=== PATIENT | female | born 1930 | race Caucasian/White ===

== ENCOUNTER → 2016-12-11 | Outpatient (CLI) | payer MEDICARE, MEDICAID ==
[~2016-12-11] MED LIST: AC325T PO; ACET325T38 PO; ACET500C4 PO; ALEN70TA2 PO; ALPR1T PO; ALPR1TAB2 PO; CALC-6 PO; CALC-732 PO; CARB15DR74 OU; CFTR250V IM; CPH500CIP PO; DESV100T PO; DESV25TA PO; DESV50TA PO; DOCU-143 PO; DONE10TA5 PO; DONE5TAB4 PO; ENAL10TA PO; ENAL5TAB PO; FESO4TAB PO; HYDR-3730 PO; HYDR-757 PO; IBAN150T5 PO; IPRA3AMP IH; K-ROCEP1PB IM; LACT1CAP62 PO; LORA-794 PO; LORA10TA2 PO; LORA2DIS4 IM; LRZ1T PO; MAGN400O7 PO; MEMA10TA PO; MEMA28CA PO; MRTZ15T PO; OMEP10CA4 PO; PEG250PW PO; PROP15DR OU; QTP100T PO; SENN1TAB76 PO; SERT50TA9 PO; THIA100T12 PO; THIA50TA2 PO; VITA-235 PO; VITA400T9 PO
[2016-12-11 14:42] LABS: BILIRUBIN,URINE NEGATIVE (NEGATIVE); KETONES,URINE NEGATIVE (NEGATIVE); LEUKOCYTE ESTERASE ,URINE NEGATIVE (NEGATIVE); NITRITE,URINE NEGATIVE (NEGATIVE); PH,URINE 6 (5-9); PROTEIN,URINE NEGATIVE (NEGATIVE); UROBILINOGEN,URINE NORMAL (NORMAL)
[2016-12-11 14:51] LABS: WBC,URINE RARE /HPF
--- OUTSIDE RECORDS SUMMARY | 2016-12-12 11:35 | XMS REPORT | Continuity of Care Document ---
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 Role Phone PHYLLIS SAEED DO PCP Insurance Providers Payer Name Policy Number Subscriber Name Relationship [employer] [id number] Tonia Sanchez 18 Self / Same As Patient [facility] [id number] Tonia Sanchez 18 Self / Same As Patient Advance Directives Directive Response Recorded Date/Time Advance Directives Yes 01/18/15 5:05pm Health Care Power of Nursing Officer [place] [phone] 01/18/15 5:05pm Organ Donor No 01/18/15 5:05pm Resuscitation Status Full Code 01/18/15 5:05pm Problems Medical Problems Problem Onset Date Status Sepsis Unknown Active Altered mental status Unknown Active Pneumonia Unknown Active Fall Unknown Active Sepsis Unknown Active Sinusitis Unknown Active Fall Unknown Active Contusion of right knee Unknown Active Sinusitis Unknown Active Medications Medication Dose Route Sig Days/Qty Instructions Order Date Discontinued Date Status Desvenlafaxine Succinate 100 Mg PO 10/18/12 08/07/14 Discontinued Enalapril Maleate 5 Mg PO 10/18/12 08/06/14 Discontinued Quetiapine Fumarate 1 Tab PO DAILY 10/18/12 08/07/14 Discontinued Ibandronate Sodium 150 Mg PO MONTHY ON ON EMPTY STOMACH 10/18/12 Active Calcium Carb/Vit D3/Minerals 1 Each PO 10/18/12 08/07/14 Discontinued Loratadine 10 Mg PO DAILY For RASH 10/18/12 Active Polyethylene Glycol 17 Gm PO DAILY PRN CONSTIPATION 10/18/12 Active Memantine 1 Each PO TWICE A DAY 10/18/12 08/07/14 Discontinued Omeprazole 10 Mg PO DAILY 10/18/12 Active Senna 1 Tab PO TWICE A DAY 10/18/12 Active Thiamine Hcl 50 Mg PO 10/18/12 08/07/14 Discontinued Vitamin E Mixed 400 Unit PO 10/18/12 08/07/14 Discontinued Hydrocodone Bit/Acetaminophen 1 Tab PO EVERY 6 HOURS PRN PAIN Active Lorazepam 1 Each PO TID PRN 10/18/12 08/07/14 Discontinued Alprazolam 1 Tab PO TWICE A DAY 10/18/12 Active Acetaminophen 650 Mg PO EVERY 4HRS PRN PAIN/ELEVATED TEMP 08/06/14 Active Donepezil Hcl 10 Mg PO BEDTIME 08/06/14 08/07/14 Discontinued Lorazepam 1 Mg IM EVERY 8HRS PRN ANXIETY OR AGGITATION 08/06/14 Discontinued Lactobacillus Acidophilus 500 Mu PO FOUR TIMES DAILY For MENTAL STATUS CHANGES 08/06/14 Active Mirtazapine 15 Mg PO BEDTIME 08/06/14 Active Ceftriaxone Sodium 1 Gm IM DAILY 08/06/14 08/07/14 Discontinued Propylene Glycol/Peg 400 1 Drop OU BEFORE MEALS AND AT BEDTIME Active Acetaminophen 500 Mg PO DAILY 08/06/14 08/07/14 Discontinued Desvenlafaxine Succinate 50 Mg PO DAILY 08/07/14 Active Calcium Carbonate/Vitamin D3 1 Tab PO TWICE A DAY 08/07/14 Active Memantine HCl 28 Mg PO DAILY 08/07/14 Active Thiamine Hcl 100 Mg PO TWICE A DAY 08/07/14 Active Vitamin E 400 Unit PO DAILY 08/07/14 08/16/14 Discontinued Lorazepam 1 Mg PO EVERY 8HRS PRN ANXIETY OR AGGITATION 08/07/14 Active Donepezil HCl 10 Mg PO BEDTIME 08/07/14 Active Acetaminophen 500 Mg PO DAILY 08/07/14 08/16/14 Discontinued Ceftriaxone Sodium 1 Gm IM DAILY For MENTAL STATUS CHANGES END 08-18-14/ START 08-05-14 08/07/14 08/16/14 Discontinued Sertraline Hcl 50 Mg PO BEDTIME 08/07/14 Active Cephalexin Monohydrate 500 Mg PO THREE TIMES A DAY 30 Qty 01/18/15 Active Social History Social History Problem Response Recorded Date/Time Alcohol Use Denies Use 01/18/2015 5:05pm Recreational Drug Use No 01/18/2015 5:05pm Recent Foreign Travel No 08/07/2014 3:09am Recent Infectious Disease Exposure No 08/07/2014 3:09am Hospitalization with Isolation Denies 01/18/2015 5:00pm Smoking Status Never a Smoker 01/18/2015 5:05pm Query Response Start Date Stop Date Smoking Status Never a Smoker Hospital Discharge Instructions No hospital discharge instructions. Plan of Care No plan of care. Functional Status No functional status results. Allergies, Adverse Reactions, Alerts Allergen Type Severity Reaction Status Last Updated diclofenac ([id number]) Allergy Unknown Active 08/07/14 Immunizations Name Given Type Date of Pneumonia Vaccine 09/23/10 Historical Date of Influenza Vaccine 09/23/13 Historical Vital Signs Acute Vital Signs Vital Response Date/Time Temperature (Fahrenheit) 98.4 degrees F (97.6 - 99.5) Temperature (Calculated Celsius) 36.69136 degrees C (36.4 - 37.5) Temperature Source Temporal Pulse Rate (adult) 73 bpm (60 - 90) Respiratory Rate 20 bpm (12 - 24) O2 Sat by Pulse Oximetry 99 % (88 - 100) Blood Pressure 150/71 mm Hg Pain Pain Intensity 1 Height (Feet) 5 feet Height (Inches) 6 inches Height (Calculated Centimeters) 167.556321 cm Weight (Pounds) 125 pounds Weight (Calculated Kilograms) 56.004181 kilograms Calculated BMI 20.17 Results No known relevant diagnostic tests, laboratory data and/or discharge summary. Procedures No known history of procedures. Encounters Encounter Location Date/Time Departed Emergency Room [facility] 01/18/15 4:39pm Recent Diagnosis
== END ==
PROVIDERS: ATTEND Family Medicine
DX: Z87.440 Personal history of urinary (tract) infections (principal); R82.99 Other abnormal findings in urine
CPT/HCPCS: 81000; 87088

== ENCOUNTER 2017-02-16 18:48 | Emergency (ER) | payer MEDICARE, MEDICAID ==
[~2017-02-16] VITALS: Ht 172.7 cm; Wt 63.8 kg
[~2017-02-16 18:48] MED LIST changes: -ALEN70TA2 PO; -ALPR1TAB2 PO; -CARB15DR74 OU; -DESV25TA PO; -DOCU-143 PO; -ENAL10TA PO; -FESO4TAB PO; -IPRA3AMP IH; -MAGN400O7 PO
[2017-02-16 19:27] LABS: BASOPHILS % (AUTO) 0 % (0-10); EOSINOPHILS % (AUTO) 0 % (0-10); LYMPHOCYTES # (AUTO) 1.6 X 10^3 (1.0-4.0); LYMPHOCYTES % (AUTO) 17 % (12-44); MEAN CORPUSCULAR HEMOGLOBIN 28 PG (25-34); MEAN CORPUSCULAR HGB CONC 33 G/DL (32-36); MEAN CORPUSCULAR VOLUME 85 FL (80-99); MONOCYTES # (AUTO) 0.8 X 10^3 (0.0-1.0); MONOCYTES % (AUTO) 8 % (0-12); NEUTROPHILS # (AUTO) 7.1 X 10^3 (1.8-7.8); NEUTROPHILS % (AUTO) 75 % (42-75); PLATELET COUNT 178 10^3/uL (130-400); RED BLOOD COUNT 4.97 10^6/uL (4.35-5.85); RED CELL DISTRIBUTION WIDTH 14.3 % (10.0-14.5); WHITE BLOOD COUNT 9.5 10^3/uL (4.3-11.0)
[2017-02-16 19:42] LABS: INR 1.1 (0.8-1.4); PROTHROMBIN TIME PATIENT 13.5 SEC (12.2-14.7)
[2017-02-16 19:53] LABS: ALANINE AMINOTRANSFERASE 18 U/L (0-55); ALBUMIN 3.9 G/DL (3.2-4.5); ANION GAP 10 MMOL/L (5-14); ASPARTATE AMINO TRANSFERASE 21 U/L (5-34); BILIRUBIN,TOTAL 0.5 MG/DL (0.1-1.0); BLOOD UREA NITROGEN 23 MG/DL (7-18); BUN/CREATININE RATIO 29; CALCIUM 10.1 MG/DL (8.5-10.1); CARBON DIOXIDE 24 MMOL/L (21-32); CHLORIDE 107 MMOL/L (98-107); CREATINE KINASE 177 U/L (29-168); GFR ESTIMATED > 60; GLUCOSE 104 MG/DL (70-105); POTASSIUM 3.9 MMOL/L (3.6-5.0); SODIUM 141 MMOL/L (135-145); TOTAL PROTEIN 7.3 G/DL (6.4-8.2)
--- NOTE | 2017-02-16 19:53 | Diagnostic Imaging Report ---
INDICATION: Pelvis pain after a fall. COMPARISON: 08/06/14. TECHNIQUE: Single AP view of the pelvis. FINDINGS: No acute fracture of the proximal femurs. Asymmetric degenerative changes in the left hip with subchondral sclerosis in the femoral head. Underlying avascular necrosis could be present. No discrete fracture within the sacrum. However, evaluation of the sacrum is limited due to overlying bowel gas. Obturator rings appear intact. Scattered pelvic phleboliths. Degenerative changes in the lower lumbar spine. IMPRESSION: 1. No acute fracture in the pelvis by radiography. Please note that the sacrum is obscured by overlying bowel gas. 2. Stable asymmetric degenerative changes in the left hip. Radiolucencies and densities in the left femoral head raise the possibility of osteonecrosis. This appearance is not significantly changed since 2013. Dictated by: Dictated on workstation # [id number]
--- NOTE | 2017-02-16 19:56 | Diagnostic Imaging Report ---
PROCEDURE: CT head without contrast. TECHNIQUE: Multiple contiguous axial images were obtained through the brain without the use of intravenous contrast. INDICATION: Fall. Head injury. COMPARISON: Comparison is made with the prior study from January 18, 2016. FINDINGS: There is advanced underlying global cerebral volume loss which has not significantly changed when compared to the previous study. There are diffuse regions of low density demonstrated throughout the deep white matter compatible with advanced chronic microvascular ischemic changes. There is no territorial loss of jefferson-white differentiation to suggest acute ischemia by CT. There is no evidence of acute intracranial hemorrhage. There is no evidence of an abnormal extra-axial fluid collection. There is no hydrocephalus. The ventricular enlargement is commensurate with the degree of volume loss present. The basilar cisterns appear patent. No calvarial fracture is evident. There is no abnormal opacification evident of the mastoids. IMPRESSION: 1. Advanced global volume loss with advanced background chronic microvascular changes within the white matter. There is stable ventriculomegaly which is proportional with the volume loss. There is no evidence of acute intracranial hemorrhage or findings to suggest territorial loss of jefferson-white differentiation. Dictated by: Dictated on workstation # [id number]
--- NOTE | 2017-02-16 19:57 | Diagnostic Imaging Report ---
Portable chest. Compared to prior study from June 05, 2016. INDICATION: Status post fall. FINDINGS: There is marked enlargement of the cardiac silhouette which is unchanged. Advanced mitral annulus calcifications are also noted. There are chronic interstitial changes present within the lungs. There is no evidence to suggest superimposed acute failure. There is no focal alveolar consolidation or evidence of an effusion or pneumothorax. There are degenerative features present within the spine. No acute fractures are demonstrated. There are degenerative features within the shoulders. Patient's prior left proximal humeral fracture is not included within the [id number]. IMPRESSION: 1. No radiographic evidence of an acute cardiopulmonary process. 2. Chronic interstitial changes within the lungs are again noted. There is also advanced cardiomegaly with advanced calcifications in the region of the mitral valve annulus. There is no evidence of acute failure. No focal alveolar infiltrates are demonstrated. Dictated by: Dictated on workstation # [id number]
[2017-02-16 20:13] LABS: BILIRUBIN,URINE NEGATIVE (NEGATIVE); KETONES,URINE NEGATIVE (NEGATIVE); LEUKOCYTE ESTERASE ,URINE 1+ (NEGATIVE); NITRITE,URINE NEGATIVE (NEGATIVE); PH,URINE 6 (5-9); PROTEIN,URINE 2+ (NEGATIVE); UROBILINOGEN,URINE NORMAL (NORMAL)
[2017-02-16 20:13] LABS: TROPONIN I < 0.30 NG/ML (<0.30)
[2017-02-16 20:17] LABS: SQUAMOUS EPITHELIAL CELL,UR 0-2 /HPF; WBC,URINE 0-2 /HPF
--- NOTE | 2017-02-16 20:30 | ED General ---
General Chief Complaint: General Problems/Pain Stated Complaint: FALL Nursing Triage Note: PT TO ED 8 PER EMS, NO REPORT FROM [facility], PER EMS, REPORTS WAS TOLD BY [facility], PT FELL, GOT UP ET GOT BACK INTO BED HOWEVER FALL ETC WERE NOT WITNESSED. PT DOES HAVE HX OF DEMENTIA Nursing Sepsis Screen: No Definite Risk Source of Information: EMS, [facility] Records, Old Records Exam Limitations: Other (PT IS NOT ANSWERING QUESTIONS OR FOLLOWING COMMANDS-- PT WITH DEMENTIA. ) History of Present Illness Time Seen by Provider: 18:48 Initial Comments PT ARRIVES VIA EMS FROM [facility]FF DID NOT CALL ER PRIOR TO ARRIVAL PT WITH REPORTED "ALTERED MENTAL STATUS" --PT WITH DEMENTIA, BUT IS UNKNOWN WHAT HER BASELINE IS OR HOW HER MENTAL STATUS HAS CHANGED [facility]FF REPORTED TO EMS THAT THEY FOUND PT IN BED WITH "ALTERED MENTAL STATUS", AND THEY THOUGHT THAT PT POSSIBLY FELL AND THEN GOT HERSELF BACK IN TO BED BEFORE THE STAFF FOUND HER. NO FALL WAS WITNESSED OR VERBALIZED BY ANYONE, AND PT IS UNABLE TO PROVIDE ANY INFORMATION AT ALL, ALL SHE SAYS IS "HELP ME" AND "I'M COLD" CONTINUOUSLY NO OTHER INFORMATION IS OBTAINABLE PCP: DR. SAEED Allergies and Home Medications Allergies Coded Allergies: diclofenac (Verified Allergy, Unknown, 08/07/14) Home Medications Acetaminophen 325 Mg Tablet, 650 MG PO Q4H PRN for PAIN/ELEVATED TEMP, (Reported ) TAKE 2 (325MG) TABLET Alprazolam 1 Mg Tablet, 1 TAB PO BID, (Reported) Calcium Carbonate/Vitamin D3 1 Each Tablet, 1 TAB PO BID, (Reported) Cephalexin Monohydrate 500 Mg Cap, 500 MG PO TID, #30 Ref 0 Prescribed by: KIET SAMSON on 01/18/15 1845 Desvenlafaxine Succinate 50 Mg Tab.sr.24h, 50 MG PO DAILY, (Reported) Donepezil HCl 10 Mg Tablet, 10 MG PO HS, (Reported) Hydrocodone Bit/Acetaminophen 1 Each Tablet, 1 TAB PO Q6H PRN for PAIN, ( Reported) Hydrocodone/Acetaminophen 1 Each Tablet, 1 EACH PO Q6H PRN for arm pain, #30 Ref 0 Prescribed by: DARRELL STAPLES on 06/05/16 0243 Ibandronate Sodium 150 Mg Tablet, 150 MG PO MONTHY ON , (Reported) ON EMPTY STOMACH Lactobacillus Acidophilus 1 Each Capsule, 500 MU PO QID, (Reported) Loratadine 10 Mg Tablet, 10 MG PO DAILY, (Reported) Lorazepam 1 Mg Tab, 1 MG PO Q8H PRN for ANXIETY OR AGGITATION, (Reported) Memantine HCl 28 Mg Cap.spr.24, 28 MG PO DAILY, (Reported) Mirtazapine 15 Mg Tab, 15 MG PO HS, (Reported) Omeprazole 10 Mg Capsule.dr, 10 MG PO DAILY, (Reported) Polyethylene Glycol 1 Ea Pack, 17 GM PO DAILY PRN for CONSTIPATION, (Reported) Propylene Glycol/Peg 400 5 Ml Drops, 1 DROP OU ACHS, (Reported) Senna 1 Tab Tablet, 1 TAB PO BID, (Reported) Sertraline Hcl 50 Mg Tablet, 50 MG PO HS, (Reported) Thiamine Hcl 100 Mg Tablet, 100 MG PO BID, (Reported) Constitutional: other (UNABLE TO OBTAIN FROM PT) Past [id number] Hx Patient Social History Smoking Status: Unknown if Ever Smoked Recent Foreign Travel: No Contact w/Someone Who Travel: No Recent Infectious Disease Expo: No Recent Hopitalizations: No Immunizations Up To Date Date of Pneumonia Vaccine: Sep 23, 2010 Date of Influenza Vaccine: Sep 23, 2013 Surgeries HX Surgeries: No (UNKNOWN) Respiratory Hx Respiratory Disorders: No Cardiovascular Hx Cardiac Disorders: Yes Cardiac Disorders: Hypertension Neurological Hx Neurological Disorders: Yes Neurological Disorders: Dementia Reproductive System [employer] History: Menopausal Genitourinary Hx Genitourinary Disorders: Yes Genitourinary Disorders: UTI-Chronic Gastrointestinal Hx Gastrointestinal Disorders: Yes Gastrointestinal Disorders: Gastroesophageal Reflux Musculoskeletal Hx Musculoskeletal Disorders: Yes Musculoskeletal Disorders: Osteoporosis, Arthritis Endocrine Hx Endocrine Disorders: No HEENT HX ENT Disorders: No Cancer Hx Cancer: No Psychosocial Hx Psychiatric Problems: Yes Behavioral Health Disorders: Anxiety, Depression Integumentary HX Skin/Integumentary Disorder: No Blood Transfusions Hx Blood Disorders: No Physical Exam Vital Signs Vital Sign - Last 12Hours 02/16/17 18:51 Temp 96.3 Pulse 82 Resp 16 B/P (MAP) 200/102 Pulse Ox 95 O2 Delivery Room Air Capillary Refill : Less Than 3 Seconds General Appearance: No Apparent Distress, WD/WN, Other (MILDLY LETHARGIC, AWAKE. REPEATS "HELP ME" AND "I'M COLD" CONTINUOUSLY) HEENT: PERRL/EOMI (PUPILS PINPOINT / EQUAL), Other (POOR DENTITION) Neck: Full Range of Motion, Normal Inspection, Non Tender, Supple Respiratory: Normal Breath Sounds, No Accessory Muscle Use, No Respiratory Distress Cardiovascular: Regular Rate, Rhythm, No Edema, No JVD, Normal Peripheral Pulses, Systolic Murmur (1-2/6 MURMUR) Gastrointestinal: Normal Bowel Sounds, No Organomegaly, No Pulsatile Mass, Non Tender, Soft Back: No CVA Tenderness Extremity: Normal Range of Motion, Non Tender, No Calf Tenderness, No Pedal Edema Neurologic/Psychiatric: Other (AWAKE BUT LETHARGIC. DOES NOT ANSWER ANY QUESTIONS OR FOLLOW ANY COMMANDS, BUT MOVES ALL EXTREMITIES EQUALLY. ) Skin: Normal Color, Warm/Dry, Other (NO EXTERNAL EVIDENCE OF TRAUMA NOTED ANYWHERE ON BODY. ) Progress/Results/Core Measures Results/Orders Lab Results Laboratory Tests Test 02/16/17 18:54 02/16/17 19:22 02/16/17 19:58 Range/Units Glucometer 91 70-110 MG/DL White Blood Count 9.5 4.3-11.0 10^3/uL Red Blood Count 4.97 4.35-5.85 10^6/uL Hemoglobin 13.9 11.5-16.0 G/DL Hematocrit 42 35-52 % Mean Corpuscular Volume 85 80-99 FL Mean Corpuscular Hemoglobin 28 25-34 PG Mean Corpuscular Hemoglobin Concent 33 32-36 G/DL Red Cell Distribution Width 14.3 10.0-14.5 % Platelet Count 178 130-400 10^3/uL Mean Platelet Volume 10.0 7.4-10.4 FL Neutrophils (%) (Auto) 75 42-75 % Lymphocytes (%) (Auto) 17 12-44 % Monocytes (%) (Auto) 8 0-12 % Eosinophils (%) (Auto) 0 0-10 % Basophils (%) (Auto) 0 0-10 % Neutrophils # (Auto) 7.1 1.8-7.8 X 10^3 Lymphocytes # (Auto) 1.6 1.0-4.0 X 10^3 Monocytes # (Auto) 0.8 0.0-1.0 X 10^3 Eosinophils # (Auto) 0.0 0.0-0.3 10^3/uL Basophils # (Auto) 0.0 0.0-0.1 10^3/uL Prothrombin Time 13.5 12.2-14.7 SEC INR Comment 1.1 0.8-1.4 Activated Partial Thromboplast Time 36 H 24-35 SEC Sodium Level 141 135-145 MMOL/L Potassium Level 3.9 3.6-5.0 MMOL/L Chloride Level 107 98-107 MMOL/L Carbon Dioxide Level 24 21-32 MMOL/L Anion Gap 10 5-14 MMOL/L Blood Urea Nitrogen 23 H 7-18 MG/DL Creatinine 0.80 0.60-1.30 MG/DL Estimat Glomerular Filtration Rate > 60 BUN/Creatinine Ratio 29 Glucose Level 104 70-105 MG/DL Calcium Level 10.1 8.5-10.1 MG/DL Magnesium Level 2.0 1.8-2.4 MG/DL Total Bilirubin 0.5 0.1-1.0 MG/DL Aspartate Amino Transf (AST/SGOT) 21 5-34 U/L Alanine Aminotransferase (ALT/SGPT) 18 0-55 U/L Alkaline Phosphatase 88 40-136 U/L Total Creatine Kinase 177 H 29-168 U/L Creatine Kinase MB 7.1 *H <6.6 NG/ML Troponin I < 0.30 <0.30 NG/ML Total Protein 7.3 6.4-8.2 G/DL Albumin 3.9 3.2-4.5 G/DL TSH Levy Testing 2.35 0.35-4.94 UIU/ML Urine Color YELLOW Urine Clarity CLEAR Urine pH 6 5-9 Urine Specific [place] 1.020 1.016-1.022 Urine Protein 2+ H NEGATIVE Urine Glucose (UA) NEGATIVE NEGATIVE Urine Ketones NEGATIVE NEGATIVE Urine Nitrite NEGATIVE NEGATIVE Urine Bilirubin NEGATIVE NEGATIVE Urine Urobilinogen NORMAL NORMAL MG/DL Urine Leukocyte Esterase 1+ H NEGATIVE Urine RBC (Auto) 1+ H NEGATIVE Urine RBC 0-2 /HPF Urine WBC 0-2 /HPF Urine Squamous Epithelial Cells 0-2 /HPF Urine Crystals NONE /LPF Urine Bacteria NONE /HPF Urine Casts NONE /LPF Urine Mucus NEGATIVE /LPF Urine Culture Indicated NO Urine Opiates Screen POSITIVE H NEGATIVE Urine Oxycodone Screen NEGATIVE NEGATIVE Urine Methadone Screen NEGATIVE NEGATIVE Urine Propoxyphene Screen NEGATIVE NEGATIVE Urine Barbiturates Screen NEGATIVE NEGATIVE Ur Tricyclic Antidepressants Screen NEGATIVE NEGATIVE Urine Phencyclidine Screen NEGATIVE NEGATIVE Urine Amphetamines Screen NEGATIVE NEGATIVE Urine Methamphetamines Screen NEGATIVE NEGATIVE Urine Benzodiazepines Screen POSITIVE H NEGATIVE Urine Cocaine Screen NEGATIVE NEGATIVE Urine Cannabinoids Screen NEGATIVE NEGATIVE My Orders Orders - PRASHANT JJ DO Accucheck Stat ONCE (02/16/17 18:53) Saline Lock/Iv-Start (02/16/17 18:53) Ekg Tracing (02/16/17 18:53) Monitor-Rhythm Ecg Trace Only (02/16/17 18:53) Ct Head Wo (02/16/17 18:53) Cbc With Automated Diff (02/16/17 18:53) Comprehensive Metabolic Panel (02/16/17 18:53) Creatine Kinase (02/16/17 18:53) Creatine Kinase Mb (02/16/17 18:53) Drug Screen Stat (Urine) (02/16/17 18:53) Magnesium (02/16/17 18:53) Protime With Inr (02/16/17 18:53) Partial Thromboplastin Time (02/16/17 18:53) Thyroid Analyzer (02/16/17 18:53) Troponin I (02/16/17 18:53) Ua Culture If Indicated (02/16/17 18:53) Chest 1 View, Ap/Pa Only (02/16/17 18:53) Pelvis (02/16/17 18:53) Vital Signs/I&O Vital Sign - Last 12Hours 02/16/17 02/16/17 18:51 20:56 Temp 96.3 Pulse 82 79 Resp 16 16 B/P (MAP) 200/102 Pulse Ox 95 96 O2 Delivery Room Air Blood Pressure Mean: 134 Progress Note : Progress Note DIFFICULT TO OBTAIN BP READINGS, PT WITH CONSTANT MOVEMENT OF ARM AND FIGHTING AND C/O BP CUFF HURTING BP DOWN TO 140'S / 90'S WITHOUT TREATMENT UNEVENTFUL ER STAY ECG Initial ECG Impression Time: 19:16 Initial ECG Rate: 83 Initial ECG Rhythm: Normal Sinus (INCOMPLETE RBBB) Initial ECG Comparisson: No Previous ECG Available Diagnostic Imaging Comments CT HEAD--NO ACUTE PROCESS, ATROPHY, CHRONIC SMALL VESSEL ISCHEMIC CHANGES CXR--NO ACUTE PROCESS, CHRONIC CHANGES-CALCIFICATIONS AROUND MITRAL VALVE PELVIS XRAYS--NO ACUTE PROCESS, CHRONIC CHANGES TO LEFT HIP ALL PER RADIOLOGIST REPORTS @ 2001 Reviewed: Reviewed by Me Departure Communication Progress Notes 2024--SPOKE WITH DR. SAEED. ADVISES TO SEND PT BACK TO [facility], THEY ARE TO DO NEUROCHECKS EVERY 2 HOURS, AND HE WILL SEE PT IN OFFICE TOMORROW MORNING AT 11:30 Impression Impression: Primary Impression: Altered mental status Additional Impressions: Labile hypertension Dementia Disposition: 03 XF SNF Condition: Stable Departure-Patient Inst. Referrals: PHYLLIS SAEED DO (PCP/Family) Primary Care Physician Patient Instructions: Altered Mental Status (DC) Add. Discharge Instructions: NEUROCHECKS EVERY 2 HOURS CONTINUE CURRENT MEDICATIONS FOLLOW UP WITH DR. SAEED IN THE OFFICE TOMORROW AT 11:30 AM All discharge instructions reviewed with patient and/or family. Voiced understanding. PRASHANT JJ DO Feb 16, 2017 20:30
[2017-02-16 20:56] VITALS: BP 173/98
[2017-02-17] MEDS ORDERED: FESO4TAB PO (09:01)
[2017-02-17] MEDS ORDERED: MAGN400O7 PO (09:01)
[2017-02-17] MEDS ORDERED: DOCU-143 PO (09:01)
[2017-02-17] MEDS ORDERED: THIA50TA2 PO (09:01)
[2017-02-17] MEDS ORDERED: ALPR1TAB2 PO (09:01)
[2017-02-17] MEDS ORDERED: CARB15DR74 OU (09:01)
[2017-02-17] MEDS ORDERED: ALEN70TA2 PO (09:01)
[2017-02-17] MEDS ORDERED: DESV25TA PO (09:01)
[2017-02-17] MEDS ORDERED: IPRA3AMP IH (09:01)
--- OUTSIDE RECORDS SUMMARY | 2017-03-03 19:12 | XMS REPORT | Continuity of Care Document ---
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 03/22/2012 Ot 719.45 JOINT PAIN-PELVIS 03/22/2012 Ot 722.4 CERVICAL DISC DEGEN 03/22/2012 Ot 813.42 FX DISTAL RADIUS NEC-CL 03/22/2012 Ot 959.01 HEAD INJURY, NOS 03/22/2012 Ot E000.8 OTHER EXTERNAL CAUSE STATUS 03/22/2012 Ot E849.7 ACCID IN RESIDENT INSTIT 03/22/2012 Ot E888.9 FALL NOS 10/18/2012 Ot 722.4 CERVICAL DISC DEGEN 10/18/2012 Ot 847.0 SPRAIN OF NECK 10/18/2012 Ot 850.9 CONCUSSION NOS 10/18/2012 Ot 873.0 OPEN WOUND OF SCALP 10/18/2012 Ot E000.8 OTHER EXTERNAL CAUSE STATUS 10/18/2012 Ot E849.7 ACCID IN RESIDENT INSTIT 10/18/2012 Ot E888.9 FALL NOS 10/18/2012 Ot V03.7 TETANUS TOXOID INOCULAT 08/16/2014 PHYLLIS SAEED DO Ot 038.9 SEPTICEMIA NOS 08/16/2014 PHYLLIS SAEED DO Ot 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 08/16/2014 PHYLLIS SAEED DO Ot 276.1 HYPOSMOLALITY 08/16/2014 PHYLLIS SAEED DO Ot 276.8 HYPOPOTASSEMIA 08/16/2014 PHYLLIS SAEED DO Ot 285.9 ANEMIA NOS 08/16/2014 PHYLLIS SAEED DO Ot 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 08/16/2014 DARLIN NGPHYLLIS Ot 300.00 ANXIETY STATE NOS 08/16/2014 DARLIN NGPHYLLIS Ot 311 DEPRESSIVE DISORDER NEC 08/16/2014 DARLIN NGPHYLLIS Ot 331.0 ALZHEIMER'S DISEASE 08/16/2014 DARLIN NGPHYLLIS Ot 401.9 HYPERTENSION NOS 08/16/2014 DARLIN NGPHYLLIS Ot 482.41 METHICILLIN SUSCEPTIBLE PNEUMONIA D/ T ST 08/16/2014 DARLIN NGPHYLLIS Ot 510.9 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 FISTULA 08/16/2014 DARLIN NGPHYLLIS Ot 511.9 PLEURAL EFFUSION NOS 08/16/2014 DARLIN NGPHYLLIS Ot 530.81 ESOPHAGEAL REFLUX 08/16/2014 DARLIN NGPHYLLIS Ot 716.90 ARTHROPATHY NOS-UNSPEC 08/16/2014 DARLIN NGPHYLLIS Ot 719.45 JOINT PAIN-PELVIS 08/16/2014 DARLIN NGPHYLLIS Ot 733.00 OSTEOPOROSIS NOS 08/16/2014 DARLIN NGPHYLLIS Ot 959.09 INJURY OF FACE AND NECK 08/16/2014 DARLIN NGPHYLLIS Ot 995.91 SEPSIS 08/16/2014 DARLIN NGPHYLLIS Ot E849.7 ACCID IN RESIDENT INSTIT 08/16/2014 DARLIN NGPHYLLIS Ot E888.9 FALL NOS 08/16/2014 DARLIN NGPHYLLIS Ot V13.02 PERSONAL HISTORY, URINARY (TRACT) INFECT 10/17/2014 DARLIN NGPHYLLIS Ot 511.9 10/17/2014 DARLIN NGPHYLLIS Ot 518.0 10/17/2014 DARLIN NGPHYLLIS Ot V67.09 10/17/2014 DARLIN NGPHYLLIS Ot 486 10/17/2014 DARLIN NGPHYLLIS Ot 780.79 01/18/2015 Ot 473.9 CHRONIC SINUSITIS NOS 01/18/2015 Ot 924.11 CONTUSION OF KNEE 01/18/2015 Ot 959.7 LOWER LEG INJURY NOS 01/18/2015 Ot E000.8 OTHER EXTERNAL CAUSE STATUS 01/18/2015 Ot E849.7 ACCID IN RESIDENT INSTIT 01/18/2015 Ot E888.9 FALL NOS 02/23/2015 Ot 729.81 03/19/2015 Ot 729.81 12/14/2015 GELLENDER DO, PHYLLIS A Ot R05 12/27/2015 GELVENKATDER DO, PHYLLIS A Ot R05 06/05/2016 JHOAN DODARRELL Ot F03.90 UNSPECIFIED DEMENTIA WITHOUT BEHAVIORAL 06/05/2016 JHOAN DO, DARRELL Raygoza Ot S42.292A OTH DISP FX OF UPPER END OF LEFT HUMERUS 06/05/2016 JHOAN DODARRELL Ot S59.912A UNSPECIFIED INJURY OF LEFT FOREARM, INIT 06/05/2016 JHOAN DODARRELL Ot W01.0XXA FALL SAME LEV FROM SLIP/TRIP W/O STRIKE 06/05/2016 JHOAN DODARRELL Ot Y92.[address] IN CORRECTION PLACE 06/05/2016 JHOAN DODARRELL Ot Y99.8 OTHER EXTERNAL CAUSE STATUS 06/06/2016 JHOAN DO, DARRELL Raygoza Ot F03.90 UNSPECIFIED DEMENTIA WITHOUT BEHAVIORAL 06/06/2016 JHOAN DO, DARRELL Raygoza Ot S42.292A OTH DISP FX OF UPPER END OF LEFT HUMERUS 06/06/2016 JHOAN DO, DARRELL Raygoza Ot S59.912A UNSPECIFIED INJURY OF LEFT FOREARM, INIT 06/06/2016 JHOAN DO, DARRELL Raygoza Ot W01.0XXA FALL SAME LEV FROM SLIP/TRIP W/O STRIKE 06/06/2016 JHOAN DODARRELL Ot Y92.[address] CORRECTION PLACE 06/06/2016 JHOAN DODARRELL Ot Y99.8 OTHER EXTERNAL CAUSE STATUS 06/11/2016 JHOAN DODARRELL Ot F03.90 UNSPECIFIED DEMENTIA WITHOUT BEHAVIORAL 06/11/2016 JHOAN DODARRELL Ot S42.292A OTH DISP FX OF UPPER END OF LEFT HUMERUS 06/11/2016 JHOAN DO, DARRELL Raygoza Ot S59.912A UNSPECIFIED INJURY OF LEFT FOREARM, INIT 06/11/2016 JHOAN DO, DARRELL Raygoza Ot W01.0XXA FALL SAME LEV FROM SLIP/TRIP W/O STRIKE 06/11/2016 JHOAN DODARRELL Ot Y92.[address] IN CORRECTION PLACE 06/11/2016 JHOAN DODARRELL Ot Y99.8 OTHER EXTERNAL CAUSE STATUS 12/16/2016 DARLIN DO, PHYLLIS Carranza Ot R82.99 OTHER ABNORMAL FINDINGS IN URINE 12/16/2016 DARLIN NG, PHYLLIS Carranza Ot Z87.440 PERSONAL HISTORY OF URINARY (TRACT) INFE 12/18/2016 MCKAYLALENNEHEMIAH DO, PHYLLIS Carranza Ot R82.99 OTHER ABNORMAL FINDINGS IN URINE 12/18/2016 DARLIN DO, PHYLLIS Carranza Ot Z87.440 PERSONAL HISTORY OF URINARY (TRACT) INFE 02/03/2017 MCKAYLALENNEHEMIAH DO, PHYLLIS Carranza Ot R82.99 OTHER ABNORMAL FINDINGS IN URINE 02/03/2017 DARLIN DO, PHYLLIS Carranza Ot Z87.440 PERSONAL HISTORY OF URINARY (TRACT) INFE 02/12/2017 MCKAYLALENDER DO, PHYLLIS Carranza Ot R82.99 OTHER ABNORMAL FINDINGS IN URINE 02/12/2017 DARLIN DO, PHYLLIS Carranza Ot Z87.440 PERSONAL HISTORY OF URINARY (TRACT) INFE 02/17/2017 BRADY GUZMAN, VERONICA Carranza Ot 780.97 ALTERED MENTAL STATUS 02/17/2017 VERONICA ABREU MD Ot 791.9 ABN URINE FINDINGS NEC 02/17/2017 DARLIN NGPHYLLIS Ot 511.9 PLEURAL EFFUSION NOS 02/17/2017 DARLIN NG, PHYLLIS Carranza Ot 518.0 PULMONARY COLLAPSE 02/17/2017 DARLIN NGPHYLLIS Ot V67.09 SURGERY FOLLOW-UP, OTHER SURGERY 02/17/2017 DARLIN NG, PHYLLIS Carranza Ot 486 PNEUMONIA, ORGANISM NOS 02/17/2017 DARLIN NG, PHYLLIS Carranza Ot 780.79 OTH MALAISE FATIGUE 02/17/2017 Ot 729.81 SWELLING OF LIMB 02/17/2017 DARLIN NGPHYLLIS Ot R05 COUGH 02/17/2017 DARLIN NG, PHYLLIS Carranza Ot R82.99 OTHER ABNORMAL FINDINGS IN URINE 02/17/2017 DARLIN NG, HPYLLIS Carranza Ot Z87.440 PERSONAL HISTORY OF URINARY (TRACT) INFE 02/17/2017 PRASHANT JJ DO Ot F03.90 UNSPECIFIED DEMENTIA WITHOUT BEHAVIORAL 02/17/2017 PRASHANT JJ DO Ot I10 ESSENTIAL (PRIMARY) HYPERTENSION 02/17/2017 PRASHANT JJ DO Ot R41.82 ALTERED MENTAL STATUS, UNSPECIFIED 02/17/2017 PRASHANT JJ DO Ot Z79.899 OTHER NURSING HOME (CURRENT) DRUG THERAPY 02/18/2017 DARLIN NGPHYLLIS Ot F03.90 UNSPECIFIED DEMENTIA WITHOUT BEHAVIORAL 02/18/2017 GELLENDER DO, PHYLLIS Carranza Ot F32.9 MAJOR DEPRESSIVE DISORDER, SINGLE EPISOD 02/18/2017 GELLENDER DO, PHYLLIS Carranza Ot F41.9 ANXIETY DISORDER, UNSPECIFIED 02/18/2017 GELLENDER DO, PHYLLIS Carranza Ot I10 ESSENTIAL (PRIMARY) HYPERTENSION 02/18/2017 GELLENDER DO, PHYLLIS Carranza Ot K21.9 GASTRO-ESOPHAGEAL REFLUX DISEASE WITHOUT 02/18/2017 GELLENDER DO, PHYLLIS Carranza Ot M19.91 PRIMARY OSTEOARTHRITIS, UNSPECIFIED SITE 02/18/2017 GELLENDER DO, PHYLLIS Carranza Ot M81.0 AGE-RELATED OSTEOPOROSIS W/O CURRENT PAT 02/18/2017 GELLENDER DO, PHYLLIS Carranza Ot R11.2 NAUSEA WITH VOMITING, UNSPECIFIED 02/18/2017 GELLENDER DO, PHYLLIS Carranza Ot R41.82 ALTERED MENTAL STATUS, UNSPECIFIED 02/18/2017 GELLENDER DO, PHYLLIS Carranza Ot R47.81 SLURRED SPEECH 02/18/2017 GELLENDER DO, PHYLLIS Carranza Ot R53.83 OTHER FATIGUE 02/19/2017 GELLENDER DO, PHYLLIS Carranza Ot F03.90 UNSPECIFIED DEMENTIA WITHOUT BEHAVIORAL 02/19/2017 GELLENDER DO, PHYLLIS Carranza Ot F32.9 MAJOR DEPRESSIVE DISORDER, SINGLE EPISOD 02/19/2017 GELLENDER DO, PHYLLIS Carranza Ot F41.9 ANXIETY DISORDER, UNSPECIFIED 02/19/2017 GELLENDER DO, PHYLLIS Carranza Ot I10 ESSENTIAL (PRIMARY) HYPERTENSION 02/19/2017 GELLENDER DO, PHYLLIS Carranza Ot K21.9 GASTRO-ESOPHAGEAL REFLUX DISEASE WITHOUT 02/19/2017 GELLENDER DO, PHYLLIS Carranza Ot M19.91 PRIMARY OSTEOARTHRITIS, UNSPECIFIED SITE 02/19/2017 GELLENDER DO, PHYLLIS Carranza Ot M81.0 AGE-RELATED OSTEOPOROSIS W/O CURRENT PAT 02/19/2017 GELLENDER DO, PHYLLIS Carranza Ot R11.2 NAUSEA WITH VOMITING, UNSPECIFIED 02/19/2017 GELLENDER DO, PHYLLIS Carranza Ot R41.82 ALTERED MENTAL STATUS, UNSPECIFIED 02/19/2017 GELLENDER DO, PHYLLIS Carranza Ot R47.81 SLURRED SPEECH 02/19/2017 GELLENDER DO, PHYLLIS Carranza Ot R53.83 OTHER FATIGUE 02/19/2017 GELLENDER DO, PHYLLIS Carranza Ot F02.80 DEMENTIA IN OTH DISEASES CLASSD ELSWHR W 02/19/2017 GELLENDER DO, PHYLLIS Carranza Ot F03.90 UNSPECIFIED DEMENTIA WITHOUT BEHAVIORAL 02/19/2017 GELLENDER DO, PHYLLIS Carranza Ot F32.9 MAJOR DEPRESSIVE DISORDER, SINGLE EPISOD 02/19/2017 GELLENDER DO, PHYLLIS Carranza Ot F41.9 ANXIETY DISORDER, UNSPECIFIED 02/19/2017 GELLENDER DO, PHYLLIS Carranza Ot G30.9 ALZHEIMER'S DISEASE, UNSPECIFIED 02/19/2017 GELLENDER DO, PHYLLIS Carranza Ot I10 ESSENTIAL (PRIMARY) HYPERTENSION 02/19/2017 GELLENDER DO, PHYLLIS Carranza Ot K21.9 GASTRO-ESOPHAGEAL REFLUX DISEASE WITHOUT 02/19/2017 GELLENDER DO, PHYLLIS Carranza Ot M19.91 PRIMARY OSTEOARTHRITIS, UNSPECIFIED SITE 02/19/2017 GELLENDER DO, PHYLLIS Dillon Ot M81.0 AGE-RELATED OSTEOPOROSIS W/O CURRENT PAT 02/19/2017 GELLENDER DO, PHYLLIS Carranza Ot R11.2 NAUSEA WITH VOMITING, UNSPECIFIED 02/19/2017 GELLENDER DO, PHYLLIS Carranza Ot R41.82 ALTERED MENTAL STATUS, UNSPECIFIED 02/19/2017 GELLENDER DO, PHYLLIS Dillon Ot R47.81 SLURRED SPEECH 02/19/2017 GELLENDER DO, PHYLLIS Dillon Ot R53.83 OTHER FATIGUE 02/21/2017 АННА PRASHANT NG Ot F03.90 UNSPECIFIED DEMENTIA WITHOUT BEHAVIORAL 02/21/2017 PRASHANT JJ DO Ot I10 ESSENTIAL (PRIMARY) HYPERTENSION 02/21/2017 АННА PRASHANT NG Ot R41.82 ALTERED MENTAL STATUS, UNSPECIFIED 02/21/2017 PRASHANT JJ DO Ot Z79.899 OTHER NURSING HOME (CURRENT) DRUG THERAPY Procedures Code Description Performed By Performed On 34.91 THORACENTESIS 34.52 THORACOSCOPIC DECORTICATION OF LUNG 08/10/2014 Results Test Result Range Complete urinalysis with reflex to culture - 12/11/16 14:10 Urine color determination YELLOW NRG Urine clarity determination CLEAR NRG Urine pH measurement by test strip 6 5- 9 Specific gravity of urine by test strip 1.015 1.016-1.022 Urine protein assay by test strip, semi-quantitative NEGATIVE NEGATIVE Urine glucose detection by automated test strip NEGATIVE NEGATIVE Erythrocytes detection in urine sediment by light microscopy NEGATIVE NEGATIVE Urine ketones detection by automated test strip NEGATIVE NEGATIVE Urine nitrite detection by test strip NEGATIVE NEGATIVE Urine total bilirubin detection by test strip NEGATIVE NEGATIVE Urine urobilinogen measurement by automated test strip (mass/volume) NORMAL NORMAL Urine leukocyte esterase detection by dipstick NEGATIVE NEGATIVE Automated urine sediment erythrocyte count by microscopy (number/high power field) RARE NRG Automated urine sediment leukocyte count by microscopy (number/high power field ) RARE NRG Bacteria detection in urine sediment by light microscopy TRACE NRG Squamous epithelial cells detection in urine sediment by light microscopy 2-5 NRG Crystals detection in urine sediment by light microscopy NONE NRG Casts detection in urine sediment by light microscopy NONE NRG Mucus detection in urine sediment by light microscopy NEGATIVE NRG Complete urinalysis with reflex to culture NO NRG Bacterial urine culture - 12/11/16 14:10 URINE CULTURE RESULTS MORE THAN 3 ISOLATES NRG Capillary blood glucose measurement by glucometer (mass/volume) - 02/16/17 18: 54 Capillary blood glucose measurement by glucometer (mass/volume) 91 mg/dL 70-110 Complete blood count (CBC) with automated white blood cell (WBC) differential - 02/16/17 19:22 Blood leukocytes automated count (number/volume) 9.5 10*3/ uL 4.3-11.0 Blood erythrocytes automated count (number/volume) 4.97 10*6 /uL 4.35-5.85 Venous blood hemoglobin measurement (mass/volume) 13.9 g/dL 11.5-16.0 Blood hematocrit (volume fraction) 42 % 35-52 Automated erythrocyte mean corpuscular volume 85 [foz_us] 80-99 Automated erythrocyte mean corpuscular hemoglobin (mass per erythrocyte) 28 pg 25-34 Automated erythrocyte mean corpuscular hemoglobin concentration measurement ( mass/volume) 33 g/dL 32-36 Automated erythrocyte distribution width ratio 14.3 % 10.0-14.5 Automated blood platelet count (count/volume) 178 10*3/uL 130-400 Automated blood platelet mean volume measurement 10.0 [foz_ us] 7.4-10.4 Automated blood neutrophils/100 leukocytes 75 % 42-75 Automated blood lymphocytes/100 leukocytes 17 % 12-44 Blood monocytes/100 leukocytes 8 % 0-12 Automated blood eosinophils/100 leukocytes 0 % 0-10 Automated blood basophils/100 leukocytes 0 % 0-10 Blood neutrophils automated count (number/volume) 7.1 10*3 1.8-7.8 Blood lymphocytes automated count (number/volume) 1.6 10*3 1.0-4.0 Blood monocytes automated count (number/volume) 0.8 10*3 0.0-1.0 Automated eosinophil count 0.0 10*3/uL 0.0-0.3 Automated blood basophil count (count/volume) 0.0 10*3/uL 0.0-0.1 PT panel in platelet poor plasma by coagulation assay - 02/16/17 19:22 Prothrombin time (PT) in platelet poor plasma by coagulation assay 13.5 s 12.2-14.7 INR in platelet poor plasma or blood by coagulation assay 1.1 0.8-1.4 Activated partial thromboplastin time (aPTT) in platelet poor plasma bycoagulation assay - 02/16/17 19:22 Activated partial thromboplastin time (aPTT) in platelet poor plasma bycoagulation assay 36 s 24-35 Comprehensive metabolic panel - 02/16/17 19:22 Serum or plasma sodium measurement (moles/volume) 141 mmol/ L 135-145 Serum or plasma potassium measurement (moles/volume) 3.9 mmol/L 3.6-5.0 Serum or plasma chloride measurement (moles/volume) 107 mmol /L 98-107 Carbon dioxide 24 mmol/L 21-32 Serum or plasma anion gap determination (moles/volume) 10 mmol/L 5-14 Serum or plasma urea nitrogen measurement (mass/volume) 23 mg/dL 7-18 Serum or plasma creatinine measurement (mass/volume) 0.80 mg /dL 0.60-1.30 Serum or plasma urea nitrogen/creatinine mass ratio 29 NRG Serum or plasma creatinine measurement with calculation of estimated glomerular filtration rate > NRG Serum or plasma glucose measurement (mass/volume) 104 mg/dL 70-105 Serum or plasma calcium measurement (mass/volume) 10.1 mg/ dL 8.5-10.1 Serum or plasma total bilirubin measurement (mass/volume) 0.5 mg/dL 0.1-1.0 Serum or plasma alkaline phosphatase measurement (enzymatic activity/volume) 88 U/L 40-136 Serum or plasma aspartate aminotransferase measurement (enzymatic activity/ volume) 21 U/L 5-34 Serum or plasma alanine aminotransferase measurement (enzymatic activity/volume ) 18 U/L 0-55 Serum or plasma protein measurement (mass/volume) 7.3 g/dL 6.4-8.2 Serum or plasma albumin measurement (mass/volume) 3.9 g/dL 3.2-4.5 Magnesium - 02/16/17 19:22 Magnesium 2.0 mg/dL 1.8-2.4 Serum or plasma creatine kinase measurement (enzymatic activity/volume) - 02/16 19:22 Serum or plasma creatine kinase measurement (enzymatic activity/volume) 177 U/L 29-168 Serum or plasma creatine kinase MB measurement (enzymatic activity/volume) - 19:22 Serum or plasma creatine kinase MB measurement (enzymatic activity/volume) 7.1 ng/mL <6.6 Serum or plasma troponin i.cardiac measurement (mass/volume) - 02/16/17 19:22 Serum or plasma troponin i.cardiac measurement (mass/volume) < ng/mL <0.30 Serum or plasma thyrotropin measurement by detection limit <=0.05 miu/l (units/ volume) - 02/16/17 19:22 Serum or plasma thyrotropin measurement by detection limit <=0.05 miu/l (units/ volume) 2.35 u[iU]/mL 0.35-4.94 Complete urinalysis with reflex to culture - 02/16/17 19:58 Urine color determination YELLOW NRG Urine clarity determination CLEAR NRG Urine pH measurement by test strip 6 5- 9 Specific gravity of urine by test strip 1.020 1.016-1.022 Urine protein assay by test strip, semi-quantitative 2+ NEGATIVE Urine glucose detection by automated test strip NEGATIVE NEGATIVE Erythrocytes detection in urine sediment by light microscopy 1+ NEGATIVE Urine ketones detection by automated test strip NEGATIVE NEGATIVE Urine nitrite detection by test strip NEGATIVE NEGATIVE Urine total bilirubin detection by test strip NEGATIVE NEGATIVE Urine urobilinogen measurement by automated test strip (mass/volume) NORMAL NORMAL Urine leukocyte esterase detection by dipstick 1+ NEGATIVE Automated urine sediment erythrocyte count by microscopy (number/high power field) [HPF] NRG Automated urine sediment leukocyte count by microscopy (number/high power field ) [HPF] NRG Bacteria detection in urine sediment by light microscopy NONE NRG Squamous epithelial cells detection in urine sediment by light microscopy 0-2 NRG Crystals detection in urine sediment by light microscopy NONE NRG Casts detection in urine sediment by light microscopy NONE NRG Mucus detection in urine sediment by light microscopy NEGATIVE NRG Complete urinalysis with reflex to culture NO NRG Urine drug screening test - 02/16/17 19:58 Urine phencyclidine detection by screening method NEGATIVE NEGATIVE Urine benzodiazepines detection by screening method POSITIVE NEGATIVE Urine cocaine detection NEGATIVE NEGATIVE Urine amphetamines detection by screening method NEGATIVE NEGATIVE Urine methamphetamine detection by screening method NEGATIVE NEGATIVE Urine cannabinoids detection by screening method NEGATIVE NEGATIVE Urine opiates detection by screening method POSITIVE NEGATIVE Urine barbiturates detection NEGATIVE NEGATIVE Screening urine tricyclic antidepressants detection NEGATIVE NEGATIVE Urine methadone detection by screening method NEGATIVE NEGATIVE Urine oxycodone detection NEGATIVE NEGATIVE Urine propoxyphene detection NEGATIVE NEGATIVE Complete blood count (CBC) with automated white blood cell (WBC) differential - 02/17/17 03:11 Blood leukocytes automated count (number/volume) 11.7 10*3/ uL 4.3-11.0 Blood erythrocytes automated count (number/volume) 5.03 10*6 /uL 4.35-5.85 Venous blood hemoglobin measurement (mass/volume) 14.0 g/dL 11.5-16.0 Blood hematocrit (volume fraction) 43 % 35-52 Automated erythrocyte mean corpuscular volume 85 [foz_us] 80-99 Automated erythrocyte mean corpuscular hemoglobin (mass per erythrocyte) 28 pg 25-34 Automated erythrocyte mean corpuscular hemoglobin concentration measurement ( mass/volume) 33 g/dL 32-36 Automated erythrocyte distribution width ratio 14.2 % 10.0-14.5 Automated blood platelet count (count/volume) 165 10*3/uL 130-400 Automated blood platelet mean volume measurement 10.0 [foz_ us] 7.4-10.4 Automated blood neutrophils/100 leukocytes 89 % 42-75 Automated blood lymphocytes/100 leukocytes 8 % 12-44 Blood monocytes/100 leukocytes 4 % 0-12 Automated blood eosinophils/100 leukocytes 0 % 0-10 Automated blood basophils/100 leukocytes 0 % 0-10 Blood neutrophils automated count (number/volume) 10.4 10*3 1.8-7.8 Blood lymphocytes automated count (number/volume) 0.9 10*3 1.0-4.0 Blood monocytes automated count (number/volume) 0.4 10*3 0.0-1.0 Automated eosinophil count 0.0 10*3/uL 0.0-0.3 Automated blood basophil count (count/volume) 0.0 10*3/uL 0.0-0.1 Comprehensive metabolic panel - 02/17/17 03:11 Serum or plasma sodium measurement (moles/volume) 138 mmol/ L 135-145 Serum or plasma potassium measurement (moles/volume) 4.3 mmol/L 3.6-5.0 Serum or plasma chloride measurement (moles/volume) 105 mmol /L 98-107 Carbon dioxide 21 mmol/L 21-32 Serum or plasma anion gap determination (moles/volume) 12 mmol/L 5-14 Serum or plasma urea nitrogen measurement (mass/volume) 19 mg/dL 7-18 Serum or plasma creatinine measurement (mass/volume) 0.77 mg /dL 0.60-1.30 Serum or plasma urea nitrogen/creatinine mass ratio 25 NRG Serum or plasma creatinine measurement with calculation of estimated glomerular filtration rate > NRG Serum or plasma glucose measurement (mass/volume) 156 mg/dL 70-105 Serum or plasma calcium measurement (mass/volume) 9.7 mg/dL 8.5-10.1 Serum or plasma total bilirubin measurement (mass/volume) 0.7 mg/dL 0.1-1.0 Serum or plasma alkaline phosphatase measurement (enzymatic activity/volume) 92 U/L 40-136 Serum or plasma aspartate aminotransferase measurement (enzymatic activity/ volume) 24 U/L 5-34 Serum or plasma alanine aminotransferase measurement (enzymatic activity/volume ) 19 U/L 0-55 Serum or plasma protein measurement (mass/volume) 7.4 g/dL 6.4-8.2 Serum or plasma albumin measurement (mass/volume) 4.0 g/dL 3.2-4.5 Magnesium - 02/17/17 03:11 Magnesium 1.9 mg/dL 1.8-2.4 Serum or plasma creatine kinase measurement (enzymatic activity/volume) - 02/17 03:11 Serum or plasma creatine kinase measurement (enzymatic activity/volume) 198 U/L 29-168 Serum or plasma creatine kinase MB measurement (enzymatic activity/volume) - 03:11 Serum or plasma creatine kinase MB measurement (enzymatic activity/volume) 7.8 ng/mL <6.6 Serum or plasma troponin i.cardiac measurement (mass/volume) - 02/17/17 03:11 Serum or plasma troponin i.cardiac measurement (mass/volume) < ng/mL <0.30 Serum or plasma amylase measurement (enzymatic activity/volume) - 02/17/17 03: 11 Serum or plasma amylase measurement (enzymatic activity/volume) 54 U/L 25-125 Lipase - 02/17/17 03:11 Lipase 6 U/L 8-78 Serum or plasma troponin i.cardiac measurement (mass/volume) - 02/17/17 09:15 Serum or plasma troponin i.cardiac measurement (mass/volume) < ng/mL <0.30 Complete urinalysis with reflex to culture - 02/17/17 12:00 Urine color determination YELLOW NRG Urine clarity determination CLEAR NRG Urine pH measurement by test strip 5 5- 9 Specific gravity of urine by test strip 1.025 1.016-1.022 Urine protein assay by test strip, semi-quantitative 2+ NEGATIVE Urine glucose detection by automated test strip NEGATIVE NEGATIVE Erythrocytes detection in urine sediment by light microscopy NEGATIVE NEGATIVE Urine ketones detection by automated test strip NEGATIVE NEGATIVE Urine nitrite detection by test strip NEGATIVE NEGATIVE Urine total bilirubin detection by test strip NEGATIVE NEGATIVE Urine urobilinogen measurement by automated test strip (mass/volume) NORMAL NORMAL Urine leukocyte esterase detection by dipstick NEGATIVE NEGATIVE Automated urine sediment erythrocyte count by microscopy (number/high power field) NONE NRG Automated urine sediment leukocyte count by microscopy (number/high power field ) [HPF] NRG Bacteria detection in urine sediment by light microscopy TRACE NRG Squamous epithelial cells detection in urine sediment by light microscopy 0-2 NRG Crystals detection in urine sediment by light microscopy NONE NRG Casts detection in urine sediment by light microscopy PRESENT NRG Mucus detection in urine sediment by light microscopy MODERATE NRG Complete urinalysis with reflex to culture NO NRG Hyaline casts detection in urine sediment by light microscopy 2-5 NRG Complete blood count (CBC) with automated white blood cell (WBC) differential - 02/18/17 05:18 Blood leukocytes automated count (number/volume) 6.2 10*3/ uL 4.3-11.0 Blood erythrocytes automated count (number/volume) 4.37 10*6 /uL 4.35-5.85 Venous blood hemoglobin measurement (mass/volume) 12.2 g/dL 11.5-16.0 Blood hematocrit (volume fraction) 38 % 35-52 Automated erythrocyte mean corpuscular volume 86 [foz_us] 80-99 Automated erythrocyte mean corpuscular hemoglobin (mass per erythrocyte) 28 pg 25-34 Automated erythrocyte mean corpuscular hemoglobin concentration measurement ( mass/volume) 32 g/dL 32-36 Automated erythrocyte distribution width ratio 14.3 % 10.0-14.5 Automated blood platelet count (count/volume) 153 10*3/uL 130-400 Automated blood platelet mean volume measurement 10.0 [foz_ us] 7.4-10.4 Automated blood neutrophils/100 leukocytes 70 % 42-75 Automated blood lymphocytes/100 leukocytes 22 % 12-44 Blood monocytes/100 leukocytes 8 % 0-12 Automated blood eosinophils/100 leukocytes 0 % 0-10 Automated blood basophils/100 leukocytes 0 % 0-10 Blood neutrophils automated count (number/volume) 4.3 10*3 1.8-7.8 Blood lymphocytes automated count (number/volume) 1.3 10*3 1.0-4.0 Blood monocytes automated count (number/volume) 0.5 10*3 0.0-1.0 Automated eosinophil count 0.0 10*3/uL 0.0-0.3 Automated blood basophil count (count/volume) 0.0 10*3/uL 0.0-0.1 Comprehensive metabolic panel - 02/18/17 05:18 Serum or plasma sodium measurement (moles/volume) 141 mmol/ L 135-145 Serum or plasma potassium measurement (moles/volume) 4.0 mmol/L 3.6-5.0 Serum or plasma chloride measurement (moles/volume) 110 mmol /L 98-107 Carbon dioxide 25 mmol/L 21-32 Serum or plasma anion gap determination (moles/volume) 6 mmol/L 5-14 Serum or plasma urea nitrogen measurement (mass/volume) 14 mg/dL 7-18 Serum or plasma creatinine measurement (mass/volume) 0.77 mg /dL 0.60-1.30 Serum or plasma urea nitrogen/creatinine mass ratio 18 NRG Serum or plasma creatinine measurement with calculation of estimated glomerular filtration rate > NRG Serum or plasma glucose measurement (mass/volume) 123 mg/dL 70-105 Serum or plasma calcium measurement (mass/volume) 8.6 mg/dL 8.5-10.1 Serum or plasma total bilirubin measurement (mass/volume) 0.6 mg/dL 0.1-1.0 Serum or plasma alkaline phosphatase measurement (enzymatic activity/volume) 76 U/L 40-136 Serum or plasma aspartate aminotransferase measurement (enzymatic activity/ volume) 20 U/L 5-34 Serum or plasma alanine aminotransferase measurement (enzymatic activity/volume ) 15 U/L 0-55 Serum or plasma protein measurement (mass/volume) 6.2 g/dL 6.4-8.2 Serum or plasma albumin measurement (mass/volume) 3.4 g/dL 3.2-4.5 Encounters ACCT No. Visit Date/Time Discharge Status Pt. Type Provider Facility Loc./Unit Complaint [id number] 02/17/2017 03:45:00 2016 16:25:00 DIS Inpatient PHYLLIS SAEED DO [facility] 4TH LETHARGY;NAUSEA VOMITING; HTN;AMS,DEMENTIA [id number] 02/16/2017 18:49:00 2016 20:56:00 DIS Outpatient PRASHANT JJ DO [facility] ER FALL [id number] 06/05/2016 01:18:00 2015 02:54:00 DIS Emergency DARRELL STAPLES DO [facility] ER L WRIST PAIN [id number] 08/31/2014 10:25:00 2013 23:59:59 CLS Outpatient PHYLLIS SAEED DO [facility] LAB TIRED,PNEUMONIA [id number] 08/22/2014 11:37:00 2013 23:59:59 CLS Outpatient PHYLLIS SAEED DO [facility] RAD POST SURGERY [id number] 08/07/2014 00:04:00 2013 16:56:00 DIS Inpatient PHYLLIS SAEED DO [facility] SURGICAL SEPSIS,PNEUMONIA,AMS, FALL [id number] 08/04/2014 21:35:00 2013 23:59:59 CLS Outpatient VERONICA ABREU MD [facility] LAB ALTERED MENTAL STATUS [id number] 12/11/2016 14:10:00 ACT Outpatient PHYLLIS SAEED DO [facility] GLC [id number] 11/26/2015 14:34:00 ACT Outpatient PHYLLIS SAEED DO [facility] RAD COUGH [id number] 02/02/2015 13:04:00 Document Registration [id number] 01/18/2015 16:39:00 Document Registration [id number] 10/18/2012 14:05:00 Document Registration [id number] 03/22/2012 06:00:00 Document Registration
== END 2017-02-16 20:56 ==
LOC: EDUNIT# 18:48 → ER 18:49
DX: R41.82 Altered mental status, unspecified (principal); I10 Essential (primary) hypertension; F03.90 Unspecified dementia, unspecified severity, without behavioral disturbance, psychotic disturbance, mood disturbance, and anxiety; Z79.899 Other long term (current) drug therapy
CPT/HCPCS: 36415; 70450; 71010; 72170; 80053; 80306; 81000; 82550; 82553; 82962; 83735; 84443; 84484; 85025; 85610; 85730; 93005; 93041

== ENCOUNTER 2017-02-17 02:40 | Inpatient (IN) | payer MEDICARE, MEDICAID ==
[~2017-02-17] VITALS: Ht 165.1 cm; Wt 76.2 kg
[2017-02-17] VITALS (10 sets, daily range): BP systolic 102–175; BP diastolic 62–100
[2017-02-17] MEDS ORDERED: ONDANSETRON 4 MG/2 ML (SDV) Z0FRAN ONE (02:43)
[2017-02-17] MEDS ORDERED: ONDANSETRON 4 MG/2 ML (SDV) Z0FRAN IVP ONE (02:45)
[2017-02-17 03:19] LABS: BASOPHILS % (AUTO) 0 % (0-10); EOSINOPHILS % (AUTO) 0 % (0-10); LYMPHOCYTES # (AUTO) 0.9 X 10^3 (1.0-4.0); LYMPHOCYTES % (AUTO) 8 % (12-44); MEAN CORPUSCULAR HEMOGLOBIN 28 PG (25-34); MEAN CORPUSCULAR HGB CONC 33 G/DL (32-36); MEAN CORPUSCULAR VOLUME 85 FL (80-99); MONOCYTES # (AUTO) 0.4 X 10^3 (0.0-1.0); MONOCYTES % (AUTO) 4 % (0-12); NEUTROPHILS # (AUTO) 10.4 X 10^3 (1.8-7.8); NEUTROPHILS % (AUTO) 89 % (42-75); PLATELET COUNT 165 10^3/uL (130-400); RED BLOOD COUNT 5.03 10^6/uL (4.35-5.85); RED CELL DISTRIBUTION WIDTH 14.2 % (10.0-14.5); WHITE BLOOD COUNT 11.7 10^3/uL (4.3-11.0)
[2017-02-17 03:38] LABS: ALANINE AMINOTRANSFERASE 19 U/L (0-55); AMYLASE 54 U/L (25-125); ANION GAP 12 MMOL/L (5-14); ASPARTATE AMINO TRANSFERASE 24 U/L (5-34); BILIRUBIN,TOTAL 0.7 MG/DL (0.1-1.0); BLOOD UREA NITROGEN 19 MG/DL (7-18); BUN/CREATININE RATIO 25; CALCIUM 9.7 MG/DL (8.5-10.1); CARBON DIOXIDE 21 MMOL/L (21-32); CHLORIDE 105 MMOL/L (98-107); CREATINE KINASE 198 U/L (29-168); CREATININE SERUM 0.77 MG/DL (0.60-1.30); GFR ESTIMATED > 60; GLUCOSE 156 MG/DL (70-105); LIPASE 6 U/L (8-78); MAGNESIUM 1.9 MG/DL (1.8-2.4); POTASSIUM 4.3 MMOL/L (3.6-5.0); SODIUM 138 MMOL/L (135-145); TOTAL PROTEIN 7.4 G/DL (6.4-8.2)
[2017-02-17 03:45] LABS: TROPONIN I < 0.30 NG/ML (<0.30)
[2017-02-17] MEDS ORDERED: D5 1/2 NS 1000 ML IV SOLUTION 1,000 ML IV SCH (03:45)
[2017-02-17] MEDS ORDERED: ENALAPRILAT 2.5 MG/2 ML (VASOTEC) VIAL IV ONE (03:45)
[2017-02-17] MEDS ORDERED: LABETALOL HCL 20 MG/4 ML VIAL IV ONE (04:15)
--- NOTE | 2017-02-17 04:31 | ED General ---
General Chief Complaint: Altered Mental Status Stated Complaint: AMS Nursing Triage Note: pt to er per ems. nurse at [facility] reports her mental status was changed upon neuro check at 0200. pupils less reactive, speech slurred, droopy eyelids, vomiting, hypertension. Nursing Sepsis Screen: No Definite Risk Source of Information: EMS, Old Records Exam Limitations: Other (PT NOT TALKING OR FOLLOWING COMMANDS) History of Present Illness Time Seen by Provider: 02:43 Initial Comments PT ARRIVES VIA EMS FROM [facility] PT WAS SEEN IN ER EARLIER THIS EVENING FOR "CHANGE IN MENTAL STATUS" --BUT NO REPORT FROM [facility] STAFF, AND EMS WERE NOT ADVISED ON HOW HER MENTAL STATUS HAD CHANGED--PT WITH SEVERE DEMENTIA FULL WORK-UP INCLUDING LAB AND CT HEAD WERE ALL ESSENTIALLY NEGATIVE. PT DID HAVE LABILE BP WHILE IN ER BUT WAS IN 140'S/90'S PRIOR TO DISMISSAL WITHOUT TREATMENT. DR. SAEED HAD ADVISED TO SEND PT BACK TO [facility] WITH NEUROCHECKS EVERY 2 HOURS AND HE WOULD SEE PT TODAY AT 11:30 AM IN OFFICE [facility] STAFF REPORT THAT AT 0200 NEUROCHECK PT'S MENTAL STATUS HAD DECLINED AND PT WAS VOMITING--CHANGED FROM CHECK AT MIDNIGHT. PT WAS SITTING IN RECLINER AT THAT TIME PT WAS FOUND TO BE LETHARGIC/DROWSY--"DROOPY EYELIDS, SLURRED SPEECH, PUPILS LESS REACTIVE" PER [facility] STAFF PT IS NOT TALKING ON ARRIVAL TO ER PCP: DR. SAEED Allergies and Home Medications Allergies Coded Allergies: Diclofenac (Verified Allergy, Unknown, 08/07/14) Home Medications Acetaminophen 325 Mg Tablet, 650 MG PO Q4H PRN for PAIN/ELEVATED TEMP, (Reported ) TAKE 2 (325MG) TABLET Alprazolam 1 Mg Tablet, 1 TAB PO BID, (Reported) Calcium Carbonate/Vitamin D3 1 Each Tablet, 1 TAB PO BID, (Reported) Cephalexin Monohydrate 500 Mg Cap, 500 MG PO TID, #30 Ref 0 Prescribed by: KIET SAMSON on 01/18/15 1845 Desvenlafaxine Succinate 50 Mg Tab.sr.24h, 50 MG PO DAILY, (Reported) Donepezil HCl 10 Mg Tablet, 10 MG PO HS, (Reported) Hydrocodone Bit/Acetaminophen 1 Each Tablet, 1 TAB PO Q6H PRN for PAIN, ( Reported) Hydrocodone/Acetaminophen 1 Each Tablet, 1 EACH PO Q6H PRN for arm pain, #30 Ref 0 Prescribed by: DARRELL STAPLES on 06/05/16 0243 Ibandronate Sodium 150 Mg Tablet, 150 MG PO MONTHY ON , (Reported) ON EMPTY STOMACH Lactobacillus Acidophilus 1 Each Capsule, 500 MU PO QID, (Reported) Loratadine 10 Mg Tablet, 10 MG PO DAILY, (Reported) Lorazepam 1 Mg Tab, 1 MG PO Q8H PRN for ANXIETY OR AGGITATION, (Reported) Memantine HCl 28 Mg Cap.spr.24, 28 MG PO DAILY, (Reported) Mirtazapine 15 Mg Tab, 15 MG PO HS, (Reported) Omeprazole 10 Mg Capsule.dr, 10 MG PO DAILY, (Reported) Polyethylene Glycol 1 Ea Pack, 17 GM PO DAILY PRN for CONSTIPATION, (Reported) Propylene Glycol/Peg 400 5 Ml Drops, 1 DROP OU ACHS, (Reported) Senna 1 Tab Tablet, 1 TAB PO BID, (Reported) Sertraline Hcl 50 Mg Tablet, 50 MG PO HS, (Reported) Thiamine Hcl 100 Mg Tablet, 100 MG PO BID, (Reported) Constitutional: other (UNABLE TO OBTAIN FROM PT) Gastrointestinal: see HPI Past Uhcohyt-Rnrufw-Jsnlpz Hx Patient Social History Smoking Status: Unknown if Ever Smoked Recent Foreign Travel: No Contact w/Someone Who Travel: No Recent Infectious Disease Expo: No Recent Hopitalizations: No Immunizations Up To Date Date of Pneumonia Vaccine: Sep 23, 2010 Date of Influenza Vaccine: Sep 23, 2013 Surgeries HX Surgeries: No (UNKNOWN) Respiratory Hx Respiratory Disorders: No Cardiovascular Hx Cardiac Disorders: Yes Cardiac Disorders: Hypertension Neurological Hx Neurological Disorders: Yes Neurological Disorders: Dementia 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 Genitourinary Hx Genitourinary Disorders: Yes Genitourinary Disorders: UTI-Chronic Gastrointestinal Hx Gastrointestinal Disorders: Yes Gastrointestinal Disorders: Gastroesophageal Reflux Musculoskeletal Hx Musculoskeletal Disorders: Yes Musculoskeletal Disorders: Osteoporosis, Arthritis Endocrine Hx Endocrine Disorders: No HEENT HX ENT Disorders: No Cancer Hx Cancer: No Psychosocial Hx Psychiatric Problems: Yes Behavioral Health Disorders: Anxiety, Depression Integumentary HX Skin/Integumentary Disorder: No Blood Transfusions Hx Blood Disorders: No Physical Exam Vital Signs Vital Sign - Last 12Hours 02/17/17 02:52 Temp 97.8 Pulse 114 Resp 18 B/P (MAP) 137/101 Capillary Refill : Less Than 3 Seconds General Appearance: WD/WN, Other (LETHARGIC/DROWSY BUT VOMTING /DRY HEAVES ON ARRIVAL) HEENT: PERRL/EOMI (PUPILS PINPOINT/EQUAL) Neck: Normal Inspection Respiratory: Normal Breath Sounds, No Accessory Muscle Use, No Respiratory Distress Cardiovascular: No Edema, No JVD, No Murmur, Normal Peripheral Pulses, Extra Beats (ASSOCIATED WITH PVC'S ON MONITOR), Tachycardia Gastrointestinal: Normal Bowel Sounds, No Organomegaly, No Pulsatile Mass, Non Tender, Soft Progress/Results/Core Measures Results/Orders Lab Results Laboratory Tests Test 02/17/17 03:11 Range/Units White Blood Count 11.7 H 4.3-11.0 10^3/uL Red Blood Count 5.03 4.35-5.85 10^6/uL Hemoglobin 14.0 11.5-16.0 G/DL Hematocrit 43 35-52 % Mean Corpuscular Volume 85 80-99 FL Mean Corpuscular Hemoglobin 28 25-34 PG Mean Corpuscular Hemoglobin Concent 33 32-36 G/DL Red Cell Distribution Width 14.2 10.0-14.5 % Platelet Count 165 130-400 10^3/uL Mean Platelet Volume 10.0 7.4-10.4 FL Neutrophils (%) (Auto) 89 H 42-75 % Lymphocytes (%) (Auto) 8 L 12-44 % Monocytes (%) (Auto) 4 0-12 % Eosinophils (%) (Auto) 0 0-10 % Basophils (%) (Auto) 0 0-10 % Neutrophils # (Auto) 10.4 H 1.8-7.8 X 10^3 Lymphocytes # (Auto) 0.9 L 1.0-4.0 X 10^3 Monocytes # (Auto) 0.4 0.0-1.0 X 10^3 Eosinophils # (Auto) 0.0 0.0-0.3 10^3/uL Basophils # (Auto) 0.0 0.0-0.1 10^3/uL Sodium Level 138 135-145 MMOL/L Potassium Level 4.3 3.6-5.0 MMOL/L Chloride Level 105 98-107 MMOL/L Carbon Dioxide Level 21 21-32 MMOL/L Anion Gap 12 5-14 MMOL/L Blood Urea Nitrogen 19 H 7-18 MG/DL Creatinine 0.77 0.60-1.30 MG/DL Estimat Glomerular Filtration Rate > 60 BUN/Creatinine Ratio 25 Glucose Level 156 H 70-105 MG/DL Calcium Level 9.7 8.5-10.1 MG/DL Magnesium Level 1.9 1.8-2.4 MG/DL Total Bilirubin 0.7 0.1-1.0 MG/DL Aspartate Amino Transf (AST/SGOT) 24 5-34 U/L Alanine Aminotransferase (ALT/SGPT) 19 0-55 U/L Alkaline Phosphatase 92 40-136 U/L Total Creatine Kinase 198 H 29-168 U/L Creatine Kinase MB 7.8 *H <6.6 NG/ML Troponin I < 0.30 <0.30 NG/ML Total Protein 7.4 6.4-8.2 G/DL Albumin 4.0 3.2-4.5 G/DL Amylase Level 54 25-125 U/L Lipase 6 L 8-78 U/L My Orders Orders - PRASHANT JJ DO Ondansetron Injection (Zofran Injectio (02/17/17 02:45) Ct Head Wo (02/17/17 02:45) Saline Lock/Iv-Start (02/17/17 02:45) Ekg Tracing (02/17/17 02:45) Monitor-Rhythm Ecg Trace Only (02/17/17 02:45) Amylase (02/17/17 02:45) Cbc With Automated Diff (02/17/17 02:45) Comprehensive Metabolic Panel (02/17/17 02:45) Creatine Kinase (02/17/17 02:45) Creatine Kinase Mb (02/17/17 02:45) Lipase (02/17/17 02:45) Magnesium (02/17/17 02:45) Troponin I (02/17/17 02:45) Chest 1 View, Ap/Pa Only (02/17/17 02:45) Ondansetron Injection (Zofran Injectio (02/17/17 02:43) Enalaprilat Injection (Vasotec Injection (02/17/17 03:45) D5 1/2 Ns 1000 Ml Iv Solution (Dextrose (02/17/17 03:45) Labetalol Injection (Normodyne Injection (02/17/17 04:15) Medications Given in ED Current Medications Medications Dose Ordered Sig/Beka Route Start Time Stop Time Status Last Admin Dose Admin Enalaprilat 2.5 mg ONCE ONCE IV 02/17/17 03:45 02/17/17 03:46 DC 02/17/17 03:51 2.5 MG Ondansetron HCl 8 mg ONCE ONCE IVP 02/17/17 02:45 02/17/17 02:46 DC 02/17/17 02:47 8 MG Vital Signs/I&O Vital Sign - Last 12Hours 02/17/17 02:52 Temp 97.8 Pulse 114 Resp 18 B/P (MAP) 137/101 Blood Pressure Mean: 113 Progress Note : Progress Note NO DETERIORATION IN PT'S CONDITION DURING ER STAY NAUSEA RESOLVED WITH ZOFRAN BP DOWN TO 150'S / 70'S AND HEART RATE DOWN TO 80'S WITH VASOTEC AND LABETALOL ECG Initial ECG Impression Time: 02:59 Initial ECG Rate: 98 Initial ECG Rhythm: Normal Sinus (PVC'S, RBBB/LAFB) Initial ECG Comparisson: Unchanged Diagnostic Imaging Comments CXR--UNDER-PENETRATED, BUT NO SIGNIFICANT CHANGE FROM PREVIOUS--PENDING RADIOLOGIST REVIEW CT HEAD--NO ACUTE PROCESS, CHRONIC SMALL VESSEL ISCHEMIC CHANGES/OLD LACUNAR INFARCTS--PER [facility] VIA FAX @ [phone] Reviewed: Reviewed by Me Departure Communication Progress Notes 0409--SPOKE WITH DR. SAEED, ACCEPTS PT FOR ADMIT Impression Impression: Primary Impression: Altered mental status Additional Impressions: Nausea & vomiting Lethargy Dementia Uncontrolled hypertension Disposition: 09 ADMITTED INPATIENT Condition: Improved Decision to Admit Reason: Admit from ER (General) Decision to Admit/Date: Feb 17, 2017 Time/Decision to Admit Time: 03:45 Departure-Patient Inst. Referrals: PHYLLIS SAEED DO (PCP/Family) Primary Care Physician PRASHANT JJ DO Feb 17, 2017 04:31
[2017-02-17] MEDS ORDERED: ONDANSETRON 4 MG/2 ML (SDV) Z0FRAN IV PRN (05:30)
[2017-02-17] MEDS: D5 1/2 NS 1000 ML IV SOLUTION 1,000 ML IV SCH ×3 (05:33→22:13)
[2017-02-17] MEDS ORDERED: CATHETER FLUSH 10 ML SYR IV PRN (07:30)
--- NOTE | 2017-02-17 07:30 | History & Physicial ---
History of Present Illness History of Present Illness Reason for visit/HPI patient has dementia. Patient having altered mental status at 2 a.m. Patient previously sent to the emergency room due to possible fall. patient sent back to the half-way to have neuro checks. Patient had change in mental status and started to vomit and sent back to the emergency room. Patient evaluated and admitted. Patient this morning is keep her eyes closed and not communicating Date of Admission Feb 17, 2017 at 03:45 I consulted on this patient on 02/17/17 07:25 Attending Physician Rod Wang DO Admitting Physician Rod Wang DO Consult Allergies and Home Medications Allergies Coded Allergies: diclofenac (Verified Allergy, Unknown, 08/07/14) Home Medications Acetaminophen 325 Mg Tablet, 650 MG PO Q4H PRN for PAIN/ELEVATED TEMP, (Reported ) TAKE 2 (325MG) TABLET Alprazolam 1 Mg Tablet, 1 TAB PO BID, (Reported) Calcium Carbonate/Vitamin D3 1 Each Tablet, 1 TAB PO BID, (Reported) Cephalexin Monohydrate 500 Mg Cap, 500 MG PO TID, #30 Ref 0 Prescribed by: KIET SAMSON on 01/18/15 1845 Desvenlafaxine Succinate 50 Mg Tab.sr.24h, 50 MG PO DAILY, (Reported) Donepezil HCl 10 Mg Tablet, 10 MG PO HS, (Reported) Hydrocodone Bit/Acetaminophen 1 Each Tablet, 1 TAB PO Q6H PRN for PAIN, ( Reported) Hydrocodone/Acetaminophen 1 Each Tablet, 1 EACH PO Q6H PRN for arm pain, #30 Ref 0 Prescribed by: DARRELL STAPLES on 06/05/16 0243 Ibandronate Sodium 150 Mg Tablet, 150 MG PO MONTHY ON , (Reported) ON EMPTY STOMACH Lactobacillus Acidophilus 1 Each Capsule, 500 MU PO QID, (Reported) Loratadine 10 Mg Tablet, 10 MG PO DAILY, (Reported) Lorazepam 1 Mg Tab, 1 MG PO Q8H PRN for ANXIETY OR AGGITATION, (Reported) Memantine HCl 28 Mg Cap.spr.24, 28 MG PO DAILY, (Reported) Mirtazapine 15 Mg Tab, 15 MG PO HS, (Reported) Omeprazole 10 Mg Capsule.dr, 10 MG PO DAILY, (Reported) Polyethylene Glycol 1 Ea Pack, 17 GM PO DAILY PRN for CONSTIPATION, (Reported) Propylene Glycol/Peg 400 5 Ml Drops, 1 DROP OU ACHS, (Reported) Senna 1 Tab Tablet, 1 TAB PO BID, (Reported) Sertraline Hcl 50 Mg Tablet, 50 MG PO HS, (Reported) Thiamine Hcl 100 Mg Tablet, 100 MG PO BID, (Reported) Past Loidtpn-Spsvxu-Mbsthm Hx Patient Social History Employed/Student: unemployed Alcohol Use: Denies Use Recreational Drug Use: No Smoking Status: Unknown if Ever Smoked Physical Abuse Screen: No Sexual Abuse: No Recent Foreign Travel: No Contact w/other who traveled: No Recent Hopitalizations: No Recent Infectious Disease Expo: No Immunizations Up To Date Date of Pneumonia Vaccine: Sep 23, 2010 Date of Influenza Vaccine: Sep 23, 2013 Surgeries HX Surgeries: No (UNKNOWN) Respiratory Hx Respiratory Disorders: No Cardiovascular Hx Cardiovascular Disorders: Yes Cardiac Disorders: Hypertension Neurological Hx Neurological Disorders: Yes Neurological Disorders: Dementia Genitourinary Hx Genitourinary Disorders: Yes Genitourinary Disorders: UTI-Chronic Gastrointestinal Hx Gastrointestinal Disorders: Yes Gastrointestinal Disorders: Gastroesophageal Reflux Musculoskeletal Hx Musculoskeletal Disorders: Yes Musculoskeletal Disorders: Osteoporosis, Arthritis Endocrine Hx Endocrine Disorders: No HEENT HX ENT Disorders: No Cancer Hx Cancer: No Psychosocial Hx Psychiatric Problems: Yes Behavioral Health Disorders: Anxiety, Depression Integumentary HX Skin/Integumentary Disorder: No Blood Transfusions Hx Blood Disorders: No Constitutional: malaise, weakness EENTM: no symptoms reported Respiratory: no symptoms reported Cardiovascular: no symptoms reported Gastrointestinal: nausea, vomiting Genitourinary: no symptoms reported Physical Exam Vital Signs Vital Sign - Last 12Hours 02/17/17 02/17/17 02/17/17 02:52 05:00 05:03 Temp 97.8 Pulse 114 Resp 18 B/P (MAP) 137/101 Pulse Ox 99 O2 Delivery Room Air O2 Flow Rate 2.00 Capillary Refill : Less Than 3 Seconds General Appearance: WD/WN, Other (eyes closed, not talking, Alzheimer's) HEENT: Normal ENT Inspection Neck: Normal Inspection Respiratory: Chest Non Tender, Lungs Clear, Normal Breath Sounds, No Accessory Muscle Use, No Respiratory Distress Cardiovascular: Regular Rate, Rhythm, No Murmur Gastrointestinal: Non Tender, Soft Assessment/Plan Assessment and Plan lethargy. Nausea and vomiting. Alzheimer's disease. Hypertension area Problems: Clinical Quality Measures DVT/VTE Risk/Contraindication: Risk Factor Score Per Nursin RFS Level Per Nursing on Admit: 2=Moderate ROD WANG DO Feb 17, 2017 07:29
--- NOTE | 2017-02-17 07:57 | Diagnostic Imaging Report ---
PROCEDURE: CT head without contrast. TECHNIQUE: Multiple contiguous axial images were obtained through the brain without the use of intravenous contrast. INDICATION: Acute mental status change EXAMINATION: CT brain 02/17/2017 COMPARISON: 02/16/2017 FINDINGS: Again noted is diffuse atrophy. There is chronic ischemic disease in a periventricular deep white matter distribution similar to previous imaging. No new infarcts appreciated. No mass, mass effect or midline shift. No hydrocephalus is seen. There is no acute hemorrhage. The calvarium, paranasal sinuses and mastoid air cells stable from recent imaging. IMPRESSION: 1. No acute process with chronic findings as described. Findings agree with the preliminary report. Dictated by: Dictated on workstation # [id number]
--- NOTE | 2017-02-17 08:13 | Diagnostic Imaging Report ---
INDICATION: Acute mental status change. EXAMINATION: Chest 02/17/2017 Comparison made to 02/16/2017 FINDINGS: Cardiomegaly noted with mild pulmonary vascular congestion seen. Chronic appearing changes seen throughout the lungs, mild superimposed edema not excluded, correlate clinically. No focal infiltrates or effusions. No pneumothorax. There is deformity of the proximal left humerus perhaps due to previous fracture; correlate clinically as this is incompletely imaged. IMPRESSION: 1. Chronic change as described with possible mild pulmonary edema; correlate with symptoms. Dictated by: Dictated on workstation # [id number]
[2017-02-17] MEDS ORDERED: ALPR1TAB2 PO (09:01)
[2017-02-17] MEDS ORDERED: MAGN400O7 PO (09:01)
[2017-02-17] MEDS ORDERED: DESV25TA PO (09:01)
[2017-02-17] MEDS ORDERED: FESO4TAB PO (09:01)
[2017-02-17] MEDS ORDERED: IPRA3AMP IH (09:01)
[2017-02-17] MEDS ORDERED: THIA50TA2 PO (09:01)
[2017-02-17] MEDS ORDERED: ALEN70TA2 PO (09:01)
[2017-02-17] MEDS ORDERED: DOCU-143 PO (09:01)
[2017-02-17] MEDS ORDERED: CARB15DR74 OU (09:01)
[2017-02-17] MEDS: ENOXAPARIN 40 MG/0.4 ML (LOVENOX) SYR SC SCH (09:46)
[2017-02-17 12:09] LABS: BILIRUBIN,URINE NEGATIVE (NEGATIVE); KETONES,URINE NEGATIVE (NEGATIVE); LEUKOCYTE ESTERASE ,URINE NEGATIVE (NEGATIVE); NITRITE,URINE NEGATIVE (NEGATIVE); PH,URINE 5 (5-9); PROTEIN,URINE 2+ (NEGATIVE); UROBILINOGEN,URINE NORMAL (NORMAL)
[2017-02-17 12:33] LABS: SQUAMOUS EPITHELIAL CELL,UR 0-2 /HPF; WBC,URINE 0-2 /HPF
[2017-02-17] MEDS: ENALAPRILAT 2.5 MG/2 ML (VASOTEC) VIAL IV PRN (19:28)
[2017-02-18] VITALS (8 sets, daily range): BP systolic 141–190; BP diastolic 79–96
[2017-02-18 05:25] LABS: BASOPHILS % (AUTO) 0 % (0-10); EOSINOPHILS % (AUTO) 0 % (0-10); LYMPHOCYTES # (AUTO) 1.3 X 10^3 (1.0-4.0); LYMPHOCYTES % (AUTO) 22 % (12-44); MEAN CORPUSCULAR HEMOGLOBIN 28 PG (25-34); MEAN CORPUSCULAR HGB CONC 32 G/DL (32-36); MEAN CORPUSCULAR VOLUME 86 FL (80-99); MONOCYTES # (AUTO) 0.5 X 10^3 (0.0-1.0); MONOCYTES % (AUTO) 8 % (0-12); NEUTROPHILS # (AUTO) 4.3 X 10^3 (1.8-7.8); NEUTROPHILS % (AUTO) 70 % (42-75); PLATELET COUNT 153 10^3/uL (130-400); RED BLOOD COUNT 4.37 10^6/uL (4.35-5.85); RED CELL DISTRIBUTION WIDTH 14.3 % (10.0-14.5); WHITE BLOOD COUNT 6.2 10^3/uL (4.3-11.0)
[2017-02-18 05:43] LABS: ALANINE AMINOTRANSFERASE 15 U/L (0-55); ALBUMIN 3.4 G/DL (3.2-4.5); ANION GAP 6 MMOL/L (5-14); ASPARTATE AMINO TRANSFERASE 20 U/L (5-34); BILIRUBIN,TOTAL 0.6 MG/DL (0.1-1.0); BLOOD UREA NITROGEN 14 MG/DL (7-18); BUN/CREATININE RATIO 18; CALCIUM 8.6 MG/DL (8.5-10.1); CARBON DIOXIDE 25 MMOL/L (21-32); CHLORIDE 110 MMOL/L (98-107); CREATININE SERUM 0.77 MG/DL (0.60-1.30); GFR ESTIMATED > 60; GLUCOSE 123 MG/DL (70-105); SODIUM 141 MMOL/L (135-145); TOTAL PROTEIN 6.2 G/DL (6.4-8.2)
[2017-02-18] MEDS: D5 1/2 NS 1000 ML IV SOLUTION 1,000 ML IV SCH (06:31)
--- NOTE | 2017-02-18 07:50 | Progress Note (SOAP) ---
Subjective Subjective/Events-last exam Patient last night still lethargic. Patient is morning awake and states she feels good. Left side she improving. Altered mental status better. No vomiting this morning. Hypertension Objective Exam Vital Signs Date Time Temp Pulse Resp B/P (MAP) Pulse Ox O2 Delivery O2 Flow Rate FiO2 02/18/17 04:00 98.7 77 16 141/79 94 Room Air 02/18/17 00:00 98.1 85 18 156/82 96 Room Air 02/17/17 20:20 161/80 02/17/17 20:00 169/74 02/17/17 19:10 98.7 80 20 175/90 93 Room Air 02/17/17 15:50 98.9 73 20 127/62 93 Room Air 02/17/17 12:19 92 02/17/17 12:00 99.0 81 20 102/71 97 Room Air 02/17/17 10:00 100.6 81 20 110/67 90 Room Air 02/17/17 08:00 96 I & O 02/18/17 07:00 Intake Total 3000 ml Balance 3000 ml Capillary Refill : Less Than 3 Seconds General Appearance: No Apparent Distress, Thin HEENT: Normal ENT Inspection Neck: Normal Inspection Respiratory: Chest Non Tender, Normal Breath Sounds, No Accessory Muscle Use, No Respiratory Distress Cardiovascular: Regular Rate, Rhythm, No Murmur Results Lab Laboratory Tests 02/18/17 05:18 Laboratory Tests 02/17/17 09:15: Troponin I < 0.30 02/17/17 12:00: Urine Color YELLOW, Urine Clarity CLEAR, Urine pH 5, Urine Specific [place] 1.025H, Urine Protein 2+H, Urine Glucose (UA) NEGATIVE, Urine Ketones NEGATIVE, Urine Nitrite NEGATIVE, Urine Bilirubin NEGATIVE, Urine Urobilinogen NORMAL, Urine Leukocyte Esterase NEGATIVE, Urine RBC (Auto) NEGATIVE, Urine RBC NONE, Urine WBC 0-2, Urine Squamous Epithelial Cells 0-2, Urine Crystals NONE, Urine Bacteria TRACE, Urine Casts PRESENT, Urine Hyaline Casts 2-5H, Urine Mucus MODERATEH, Urine Culture Indicated NO 02/18/17 05:18: White Blood Count 6.2, Red Blood Count 4.37, Hemoglobin 12.2, Hematocrit 38, Mean Corpuscular Volume 86, Mean Corpuscular Hemoglobin 28, Mean Corpuscular Hemoglobin Concent 32, Red Cell Distribution Width 14.3, Platelet Count 153, Mean Platelet Volume 10.0, Neutrophils (%) (Auto) 70, Lymphocytes (%) (Auto) 22 , Monocytes (%) (Auto) 8, Eosinophils (%) (Auto) 0, Basophils (%) (Auto) 0, Neutrophils # (Auto) 4.3, Lymphocytes # (Auto) 1.3, Monocytes # (Auto) 0.5, Eosinophils # (Auto) 0.0, Basophils # (Auto) 0.0, Sodium Level 141, Potassium Level 4.0, Chloride Level 110H, Carbon Dioxide Level 25, Anion Gap 6, Blood Urea Nitrogen 14, Creatinine 0.77, Estimat Glomerular Filtration Rate > 60, BUN/ Creatinine Ratio 18, Glucose Level 123H, Calcium Level 8.6, Total Bilirubin 0.6 , Aspartate Amino Transf (AST/SGOT) 20, Alanine Aminotransferase (ALT/SGPT) 15, Alkaline Phosphatase 76, Total Protein 6.2L, Albumin 3.4 Assessment/Plan Assessment/Plan Assess & Plan/Chief Complaint Patient last night lethargic. Patient awake this morning. Patient states she's feeling good. To start her medicines. To start feeding her. Altered mental status. Alzheimer's disease. Lethargy. Nausea and vomiting Hypertension Clinical Quality Measures DVT/VTE Risk/Contraindication: Risk Factor Score Per Nursin RFS Level Per Nursing on Admit: 2=Moderate PHYLLIS SAEED DO Feb 18, 2017 07:50
[2017-02-18] MEDS: ENOXAPARIN 40 MG/0.4 ML (LOVENOX) SYR SC SCH (07:56)
[2017-02-18] MEDS ORDERED: RT-ALBUTEROL/IPRATROPIUM 3 ML (DUONEB) VIAL IH PRN (08:00)
[2017-02-18] MEDS ORDERED: MILK OF MAGNESIA 400 MG/5 ML 30 ML UDC PO PRN (08:00)
[2017-02-18] MEDS ORDERED: HYDROcodone/APAP 5 MG/325 MG (LORTAB) TAB PO PRN (08:00)
[2017-02-18] MEDS: SENNA W/DOCUSATE (SENOKOT S) TABLET PO SCH ×2 (08:48→21:00)
[2017-02-18] MEDS: VENlafaxine XR 37.5 MG (EFFEXOR XR) CAP PO SCH (09:09)
[2017-02-18] MEDS: TOLTERODINE LA 2 MG (DETROL LA) CAP PO SCH (09:09)
[2017-02-18] MEDS: DOCUSATE SODIUM 100 MG (COLACE) CAP PO SCH ×2 (09:09→21:00)
[2017-02-18] MEDS: ENALAPRILAT 2.5 MG/2 ML (VASOTEC) VIAL IV PRN (12:21)
[2017-02-18] MEDS: ALPRAZolam 1 MG (XANAX) TAB PO SCH ×2 (16:17→21:48)
[2017-02-18] MEDS: ENALAPRIL 10 MG (VASOTEC) TAB PO SCH (19:01)
[2017-02-18] MEDS ORDERED: DONEPEZIL 10 MG (ARICEPT) TAB PO SCH (21:00)
[2017-02-19] MEDS: VENlafaxine XR 37.5 MG (EFFEXOR XR) CAP PO SCH (06:17)
--- NOTE | 2017-02-19 07:50 | Progress Note (SOAP) ---
Subjective Subjective/Events-last exam lethargic. Nausea and vomiting. Hypertension. Patient is awake today. Patient is walking. Altered mental status resolved. Plan to discharge patient today Objective Exam Vital Signs Date Time Temp Pulse Resp B/P (MAP) Pulse Ox O2 Delivery O2 Flow Rate FiO2 02/18/17 23:25 97.7 72 18 154/81 93 Room Air 02/18/17 19:30 97.9 70 20 165/79 96 Room Air 02/18/17 18:59 190/96 02/18/17 16:10 99.2 80 24 175/91 95 Room Air 02/18/17 12:00 99.1 80 20 175/91 96 Room Air 02/18/17 09:09 2.00 02/18/17 08:00 98.1 69 18 147/79 94 Room Air I & O 02/19/17 07:00 Intake Total 1280 ml Balance 1280 ml Capillary Refill : Less Than 3 Seconds General Appearance: No Apparent Distress, WD/WN HEENT: Normal ENT Inspection Neck: Normal Inspection Respiratory: Chest Non Tender, Lungs Clear, No Accessory Muscle Use, No Respiratory Distress Cardiovascular: Regular Rate, Rhythm, No Murmur Gastrointestinal: non tender, soft Assessment/Plan Assessment/Plan Assess & Plan/Chief Complaint Patient last night lethargic. Patient awake this morning. Patient states she's feeling good. To start her medicines. To start feeding her. Altered mental status. Alzheimer's disease. Lethargy. Nausea and vomiting Hypertension. . 02/19/17. Patient not lethargic. Altered mental status resolved. Alzheimer's. No nausea or vomiting. Patient is good as she'll get Clinical Quality Measures DVT/VTE Risk/Contraindication: Risk Factor Score Per Nursin RFS Level Per Nursing on Admit: 2=Moderate PHYLLIS SAEED DO Feb 19, 2017 07:50
[2017-02-19 08:18] VITALS: BP 165/80
[2017-02-19] MEDS: SENNA W/DOCUSATE (SENOKOT S) TABLET PO SCH (09:00)
[2017-02-19] MEDS: DOCUSATE SODIUM 100 MG (COLACE) CAP PO SCH (09:00)
[2017-02-19] MEDS: ENOXAPARIN 40 MG/0.4 ML (LOVENOX) SYR SC SCH (09:11)
[2017-02-19] MEDS: ALPRAZolam 1 MG (XANAX) TAB PO SCH ×2 (09:11→12:27)
[2017-02-19] MEDS: ENALAPRIL 10 MG (VASOTEC) TAB PO SCH (09:11)
[2017-02-19] MEDS: TOLTERODINE LA 2 MG (DETROL LA) CAP PO SCH (09:12)
[2017-02-19] MEDS ORDERED: ENAL10TA PO (10:52)
--- NOTE | 2017-02-23 08:36 | Discharge Summary ---
Diagnosis/Chief Complaint Date of Admission Feb 17, 2017 at 03:45 Date of Discharge Feb 19, 2017 at 16:25 Discharge Date: Feb 19, 2017 Admission Diagnosis Admission Diagnosis lethargy. Nausea and vomiting. Alzheimer's disease. Hypertension area Discharge Diagnosis altered mental status. Alzheimer's disease. Dementia without behavioral disturbance. Hypertension. Nausea and vomiting. Lethargy. Reason Hospital Visit patient has dementia. Patient having altered mental status at 2 a.m. Patient previously sent to the emergency room due to possible fall. patient sent back to the retirement to have neuro checks. Patient had change in mental status and started to vomit and sent back to the emergency room. Patient evaluated and admitted. Patient this morning is keep her eyes closed and not communicating Discharge Summary Discharge Physical Examination Allergies: Coded Allergies: diclofenac (Verified Allergy, Unknown, 08/07/14) Vitals & I&Os Vital Signs Date Time Temp Pulse Resp B/P (MAP) Pulse Ox O2 Delivery O2 Flow Rate FiO2 02/19/17 08:18 98.7 82 18 165/80 93 Room Air 02/18/17 09:09 2.00 Hospital Course patient in hospital did improve. Patient did wake up Patient did talk Labs (last 24 hrs) Laboratory Tests 02/17/17 03:11: White Blood Count 11.7H, Red Blood Count 5.03, Hemoglobin 14.0, Hematocrit 43, Mean Corpuscular Volume 85, Mean Corpuscular Hemoglobin 28, Mean Corpuscular Hemoglobin Concent 33, Red Cell Distribution Width 14.2, Platelet Count 165, Mean Platelet Volume 10.0, Neutrophils (%) (Auto) 89H, Lymphocytes (%) (Auto) 8L , Monocytes (%) (Auto) 4, Eosinophils (%) (Auto) 0, Basophils (%) (Auto) 0, Neutrophils # (Auto) 10.4H, Lymphocytes # (Auto) 0.9L, Monocytes # (Auto) 0.4, Eosinophils # (Auto) 0.0, Basophils # (Auto) 0.0, Sodium Level 138, Potassium Level 4.3, Chloride Level 105, Carbon Dioxide Level 21, Anion Gap 12, Blood Urea Nitrogen 19H, Creatinine 0.77, Estimat Glomerular Filtration Rate > 60, BUN /Creatinine Ratio 25, Glucose Level 156H, Calcium Level 9.7, Magnesium Level 1.9 , Total Bilirubin 0.7, Aspartate Amino Transf (AST/SGOT) 24, Alanine Aminotransferase (ALT/SGPT) 19, Alkaline Phosphatase 92, Total Creatine Kinase 198H, Creatine Kinase MB 7.8*H, Troponin I < 0.30, Total Protein 7.4, Albumin 4.0, Amylase Level 54, Lipase 6L 02/17/17 09:15: Troponin I < 0.30 02/17/17 12:00: Urine Color YELLOW, Urine Clarity CLEAR, Urine pH 5, Urine Specific [place] 1.025H, Urine Protein 2+H, Urine Glucose (UA) NEGATIVE, Urine Ketones NEGATIVE, Urine Nitrite NEGATIVE, Urine Bilirubin NEGATIVE, Urine Urobilinogen NORMAL, Urine Leukocyte Esterase NEGATIVE, Urine RBC (Auto) NEGATIVE, Urine RBC NONE, Urine WBC 0-2, Urine Squamous Epithelial Cells 0-2, Urine Crystals NONE, Urine Bacteria TRACE, Urine Casts PRESENT, Urine Hyaline Casts 2-5H, Urine Mucus MODERATEH, Urine Culture Indicated NO 02/18/17 05:18: White Blood Count 6.2, Red Blood Count 4.37, Hemoglobin 12.2, Hematocrit 38, Mean Corpuscular Volume 86, Mean Corpuscular Hemoglobin 28, Mean Corpuscular Hemoglobin Concent 32, Red Cell Distribution Width 14.3, Platelet Count 153, Mean Platelet Volume 10.0, Neutrophils (%) (Auto) 70, Lymphocytes (%) (Auto) 22 , Monocytes (%) (Auto) 8, Eosinophils (%) (Auto) 0, Basophils (%) (Auto) 0, Neutrophils # (Auto) 4.3, Lymphocytes # (Auto) 1.3, Monocytes # (Auto) 0.5, Eosinophils # (Auto) 0.0, Basophils # (Auto) 0.0, Sodium Level 141, Potassium Level 4.0, Chloride Level 110H, Carbon Dioxide Level 25, Anion Gap 6, Blood Urea Nitrogen 14, Creatinine 0.77, Estimat Glomerular Filtration Rate > 60, BUN/ Creatinine Ratio 18, Glucose Level 123H, Calcium Level 8.6, Total Bilirubin 0.6 , Aspartate Amino Transf (AST/SGOT) 20, Alanine Aminotransferase (ALT/SGPT) 15, Alkaline Phosphatase 76, Total Protein 6.2L, Albumin 3.4 Laboratory Tests 02/17/17 03:11 02/18/17 05:18 Pending Labs Laboratory Tests 02/17/17 03:11: White Blood Count 11.7, Red Blood Count 5.03, Hemoglobin 14.0, Hematocrit 43, Mean Corpuscular Volume 85, Mean Corpuscular Hemoglobin 28, Mean Corpuscular Hemoglobin Concent 33, Red Cell Distribution Width 14.2, Platelet Count 165, Mean Platelet Volume 10.0, Neutrophils (%) (Auto) 89, Lymphocytes (%) (Auto) 8, Monocytes (%) (Auto) 4, Eosinophils (%) (Auto) 0, Basophils (%) (Auto) 0, Neutrophils # (Auto) 10.4, Lymphocytes # (Auto) 0.9, Monocytes # (Auto) 0.4, Eosinophils # (Auto) 0.0, Basophils # (Auto) 0.0, Sodium Level 138, Potassium Level 4.3, Chloride Level 105, Carbon Dioxide Level 21, Anion Gap 12, Blood Urea Nitrogen 19, Creatinine 0.77, Estimat Glomerular Filtration Rate > 60, BUN/ Creatinine Ratio 25, Glucose Level 156, Calcium Level 9.7, Magnesium Level 1.9, Total Bilirubin 0.7, Aspartate Amino Transf (AST/SGOT) 24, Alanine Aminotransferase (ALT/SGPT) 19, Alkaline Phosphatase 92, Total Creatine Kinase 198, Creatine Kinase MB 7.8, Troponin I < 0.30, Total Protein 7.4, Albumin 4.0, Amylase Level 54, Lipase 6 02/17/17 09:15: Troponin I < 0.30 02/17/17 12:00: Urine Color YELLOW, Urine Clarity CLEAR, Urine pH 5, Urine Specific [place] 1.025, Urine Protein 2+, Urine Glucose (UA) NEGATIVE, Urine Ketones NEGATIVE, Urine Nitrite NEGATIVE, Urine Bilirubin NEGATIVE, Urine Urobilinogen NORMAL, Urine Leukocyte Esterase NEGATIVE, Urine RBC (Auto) NEGATIVE, Urine RBC NONE, Urine WBC 0-2, Urine Squamous Epithelial Cells 0-2, Urine Crystals NONE, Urine Bacteria TRACE, Urine Casts PRESENT, Urine Hyaline Casts 2-5, Urine Mucus MODERATE, Urine Culture Indicated NO 02/18/17 05:18: White Blood Count 6.2, Red Blood Count 4.37, Hemoglobin 12.2, Hematocrit 38, Mean Corpuscular Volume 86, Mean Corpuscular Hemoglobin 28, Mean Corpuscular Hemoglobin Concent 32, Red Cell Distribution Width 14.3, Platelet Count 153, Mean Platelet Volume 10.0, Neutrophils (%) (Auto) 70, Lymphocytes (%) (Auto) 22 , Monocytes (%) (Auto) 8, Eosinophils (%) (Auto) 0, Basophils (%) (Auto) 0, Neutrophils # (Auto) 4.3, Lymphocytes # (Auto) 1.3, Monocytes # (Auto) 0.5, Eosinophils # (Auto) 0.0, Basophils # (Auto) 0.0, Sodium Level 141, Potassium Level 4.0, Chloride Level 110, Carbon Dioxide Level 25, Anion Gap 6, Blood Urea Nitrogen 14, Creatinine 0.77, Estimat Glomerular Filtration Rate > 60, BUN/ Creatinine Ratio 18, Glucose Level 123, Calcium Level 8.6, Total Bilirubin 0.6, Aspartate Amino Transf (AST/SGOT) 20, Alanine Aminotransferase (ALT/SGPT) 15, Alkaline Phosphatase 76, Total Protein 6.2, Albumin 3.4 Radiology Reviewed CAT scan head nothing acute. chest x-ray chronic changes, may have pulmonary edema Discharge Home Medications: Active Scripts Active Enalapril Maleate 10 Mg Tablet 10 Mg PO BID 30 Days Reported Xanax (Alprazolam) 1 Mg Tablet 1 Mg PO Q12H PRN Toviaz (Fesoterodine Fumarate) 4 Mg Tab.sr.24h 4 Mg PO DAILY Refresh Tears (Carboxymethylcellulose Sodium) 15 Ml Drops 1 Drop OU QID Milk of Magnesia (Magnesium Hydroxide) 400 Mg/5 Ml Oral.susp 30 Ml PO DAILY PRN Fosamax (Alendronate Sodium) 70 Mg Tablet 70 Mg PO DELEON Iprat-Albut 0.5-3(2.5) mg/3 ml (Ipratropium/Albuterol Sulfate) 3 Ml Ampul.neb 3 Ml IH Q6H PRN Colace (Docusate Sodium) 100 Mg Capsule 100 Mg PO BID Thiamine HCl 50 Mg Tablet 100 Mg PO BID TAKES 2 (50MG) TABLETS Pristiq ER (Desvenlafaxine Succinate) 25 Mg Tab.er.24h 25 Mg PO DAILY Aricept (Donepezil HCl) 10 Mg Tablet 10 Mg PO HS Calcium 600 + Vit D 200 Tablet (Calcium Carbonate/Vitamin D3) 1 Each Tablet 1 Tab PO BID Probiotic (Lactobacillus Acidophilus) 1 Each Capsule 500 Mu PO QID Xanax (Alprazolam) 1 Mg Tablet 1 Tab PO TID [place] 5-325 Tablet (Hydrocodone Bit/Acetaminophen) 1 Each Tablet 1 Tab PO TID PRN Senokot S Tablet (Senna) 1 Tab Tablet 1 Tab PO BID Omeprazole 10 Mg Capsule.dr 10 Mg PO DAILY Miralax Pkt (Polyethylene Glycol) 1 Ea Pack 17 Gm PO DAILY PRN Instructions to patient/family Please see electonic discharge instructions given to patient. Clinical Quality Measures DVT/VTE Risk/Contraindication: Risk Factor Score Per Nursin RFS Level Per Nursing on Admit: 2=Moderate PHYLLIS SAEED DO Feb 23, 2017 08:36
--- OUTSIDE RECORDS SUMMARY | 2017-03-03 19:47 | XMS REPORT | Continuity of Care Document ---
Author Author [facility] Organization [facility] Address Unknown Phone Unavailable Allergies Active Description Code Type Severity Reaction Onset Reported/Identified Relationship to Patient Clinical Status Yes diclofenac [id number] Drug Allergy Unknown N/A 08/07/2014 Medications Problems [...] JHOAN DODARRELL Ot Y92.[address] IN ALF PLACE 06/05/2016 JHOAN DODARRELL Ot Y99.8 OTHER [...] JHOAN DODARRELL Ot Y92.[address] ALF PLACE 06/06/2016 JHOAN DODARRELL Ot Y99.8 OTHER [...] JHOAN DODARRELL Ot Y92.[address] ALF PLACE 06/11/2016 JHOAN DODARRELL Ot Y99.8 OTHER [...] Ot 791.9 ABN URINE FINDINGS NEC 02/17/2017 DARILN NGPHYLLIS Ot 511.9 PLEURAL EFFUSION NOS 02/17/2017 [...] ABNORMAL FINDINGS IN URINE 02/17/2017 DARLIN NG, PHYLLIS Carranza Ot Z87.440 PERSONAL HISTORY OF URINARY (TRACT) INFE 02/17/2017 PRASHANT JJ DO Ot F03.90 UNSPECIFIED DEMENTIA WITHOUT BEHAVIORAL 02/17/2017 PRASHANT JJ DO Ot I10 ESSENTIAL (PRIMARY) HYPERTENSION 02/17/2017 PRASHANT JJ DO Ot R41.82 ALTERED MENTAL STATUS, UNSPECIFIED 02/17/2017 PRASHANT JJ DO Ot Z79.899 OTHER ALF (CURRENT) DRUG THERAPY 02/18/2017 DARLIN NGPHYLLIS Ot [...] 02/21/2017 PRASHANT JJ DO Ot Z79.899 OTHER ALF (CURRENT) DRUG THERAPY Procedures Code Description Performed [...] Status Pt. Type Provider Facility Loc./Unit Complaint [id number] 02/17/2017 03:45:00 2016 16:25:00 DIS Inpatient PHYLLIS SAEED DO [facility] 4TH LETHARGY;NAUSEA VOMITING; HTN;AMS,DEMENTIA [id number] 02/16/2017 18:49:00 2016 20:56:00 DIS Outpatient PRASHANT JJ DO [facility] ER FALL [id number] 06/05/2016 01:18:00 2015 02:54:00 DIS Emergency DARRELL STAPLES DO [facility] ER L WRIST PAIN [id number] 08/31/2014 10:25:00 2013 23:59:59 CLS Outpatient PHYLLIS SAEED DO [facility] LAB TIRED,PNEUMONIA [id number] 08/22/2014 11:37:00 2013 23:59:59 CLS Outpatient PHYLLIS SAEED DO [facility] RAD POST SURGERY [id number] 08/07/2014 00:04:00 2013 16:56:00 DIS Inpatient PHYLLIS SAEED DO [facility] SURGICAL SEPSIS,PNEUMONIA,AMS, FALL [id number] 08/04/2014 21:35:00 2013 23:59:59 CLS Outpatient VERONICA ABREU MD [facility] LAB ALTERED MENTAL STATUS [id number] 12/11/2016 14:10:00 ACT Outpatient PHYLLIS SAEED DO [facility] GLC [id number] 11/26/2015 14:34:00 ACT Outpatient PHYLLIS SAEED DO [facility] RAD COUGH [id number] 02/02/2015 13:04:00 Document Registration [id number] 01/18/2015 16:39:00 Document Registration [id number] 10/18/2012 14:05:00 Document Registration [id number] 03/22/2012 06:00:00 Document Registration
--- OUTSIDE RECORDS SUMMARY | 2017-03-03 19:50 | XMS REPORT | Continuity of Care Document ---
Author Author [facility] Organization [facility] Address Unknown Phone Unavailable Allergies Active Description Code Type Severity Reaction Onset Reported/Identified Relationship to Patient Clinical Status Yes diclofenac [id number] Drug Allergy Unknown N/A 08/07/2014 Medications Problems [...] JHOAN DODARRELL Ot Y92.[address] IN SKILLED NURSING PLACE 06/05/2016 JHOAN DODARRELL Ot Y99.8 OTHER [...] JHOAN DODARRELL Ot Y92.[address] IN SKILLED NURSING PLACE 06/06/2016 JHOAN DODARRELL Ot Y99.8 OTHER [...] JHOAN DODARRELL Ot Y92.[address] IN SKILLED NURSING PLACE 06/11/2016 JHOAN DODARRELL Ot Y99.8 OTHER [...] 02/17/2017 PRASHANT JJ DO Ot Z79.899 OTHER RETIREMENT (CURRENT) DRUG THERAPY 02/18/2017 DARLIN NGPHYLLIS Ot [...] DEPRESSIVE DISORDER, SINGLE EPISOD 02/19/2017 GELLENDER DO, PHYLLSI Carranza Ot F41.9 ANXIETY DISORDER, UNSPECIFIED 02/19/2017 GELLENDER DO, PHYLLIS Carranza Ot G30.9 ALZHEIMER'S DISEASE, UNSPECIFIED 02/19/2017 GELLENDER DO, PHYLLIS Carranza Ot I10 ESSENTIAL (PRIMARY) HYPERTENSION 02/19/2017 GELLENDER DO, PHYLLIS Carranza Ot K21.9 GASTRO-ESOPHAGEAL REFLUX DISEASE WITHOUT 02/19/2017 GELLENDER DO, PHYLLIS Cararnza Ot M19.91 PRIMARY OSTEOARTHRITIS, UNSPECIFIED SITE 02/19/2017 [...] 02/21/2017 PRASHANT JJ DO Ot Z79.899 OTHER RETIREMENT (CURRENT) DRUG THERAPY Procedures Code Description Performed [...] Status Pt. Type Provider Facility Loc./Unit Complaint [id number] 02/17/2017 03:45:00 2016 16:25:00 DIS Inpatient PHYLLIS SAEED DO [facility] 4TH LETHARGY;NAUSEA VOMITING; HTN;AMS,DEMENTIA [id number] 02/16/2017 18:49:00 2016 20:56:00 DIS Outpatient PRASHANT JJ DO [facility] ER FALL [id number] 06/05/2016 01:18:00 2015 02:54:00 DIS Emergency DARRELL STAPLES DO [facility] ER L WRIST PAIN [id number] 08/31/2014 10:25:00 2013 23:59:59 CLS Outpatient PHYLLIS SAEED DO [facility] LAB TIRED,PNEUMONIA [id number] 08/22/2014 11:37:00 2013 23:59:59 CLS Outpatient PHYLLIS SAEED DO [facility] RAD POST SURGERY [id number] 08/07/2014 00:04:00 2013 16:56:00 DIS Inpatient PHYLLIS SAEED DO [facility] SURGICAL SEPSIS,PNEUMONIA,AMS, FALL [id number] 08/04/2014 21:35:00 2013 23:59:59 CLS Outpatient VERONICA ABREU MD [facility] LAB ALTERED MENTAL STATUS [id number] 12/11/2016 14:10:00 ACT Outpatient PHYLLIS SAEED DO [facility] GLC [id number] 11/26/2015 14:34:00 ACT Outpatient PHYLLIS SAEED DO [facility] RAD COUGH [id number] 02/02/2015 13:04:00 Document Registration [id number] 01/18/2015 16:39:00 Document Registration [id number] 10/18/2012 14:05:00 Document Registration [id number] 03/22/2012 06:00:00 Document Registration
== END 2017-02-19 16:25 | DRG 948 ==
LOC: DELPENDDIS → EDUNIT# 02:40 → ER 02:43 → ICU 03:45 → 4TH 11:09
PROVIDERS: ADMIT Family Medicine; ATTEND Family Medicine
DX: R41.82 Altered mental status, unspecified (principal); R11.2 Nausea with vomiting, unspecified; R47.81 Slurred speech; I10 Essential (primary) hypertension; K21.9 Gastro-esophageal reflux disease without esophagitis; M81.0 Age-related osteoporosis without current pathological fracture; M19.91 Primary osteoarthritis, unspecified site; G30.9 Alzheimer's disease, unspecified; F02.80 Dementia in other diseases classified elsewhere, unspecified severity, without behavioral disturbance, psychotic disturbance, mood disturbance, and anxiety; F41.9 Anxiety disorder, unspecified; F32.9 Major depressive disorder, single episode, unspecified
CPT/HCPCS: 36415; 70450; 71010; 72170; 80053; 80306; 81000; 82150; 82550; 82553; 82962; 83690; 83735; 84443; 84484; 85025; 85610; 85730; 93005; 93041; 96361; 96374; 96375

== ENCOUNTER 2017-05-06 13:20 | Emergency (ER) | payer MEDICARE, MEDICAID ==
[~2017-05-06] VITALS: Ht 167.6 cm; Wt 79.4 kg
[~2017-05-06 13:20] MED LIST changes: +ALEN70TA2 PO; +ALPR1TAB2 PO; +CARB15DR74 OU; +DESV25TA PO; +DOCU-143 PO; +ENAL10TA PO; +FESO4TAB PO; +IPRA3AMP IH; +MAGN400O7 PO
--- NOTE | 2017-05-06 13:32 | ED Fall/Injury ---
General Stated Complaint: FALL HEAD LAC/L HAND PAIN Source: patient Exam Limitations: no limitations History of Present Illness Time seen by provider: 13:30 Initial Comments To ER from [facility] with reports of a fall. Patient fell forward out of her wheelchair that this was unwitnessed. She does have a hematoma in the left forehead. She has bruising to the left hand as well as some swelling. She also has a wedding ring in place on the left ring finger with swelling around this. Patient has Alzheimer's and is demented per baseline. She is not on anticoagulants. Occurred: just prior to arrival Severity: moderate Injuries/Pain Location: head Allergies and Home Medications Allergies Coded Allergies: diclofenac (Verified Allergy, Unknown, 08/07/14) Home Medications Alendronate Sodium 70 Mg Tablet, 70 MG PO Brady, (Reported) Alprazolam 1 Mg Tablet, 1 TAB PO TID, (Reported) Alprazolam 1 Mg Tablet, 1 MG PO Q12H PRN for ANXIETY, (Reported) Calcium Carbonate/Vitamin D3 1 Each Tablet, 1 TAB PO BID, (Reported) Carboxymethylcellulose Sodium 15 Ml Drops, 1 DROP OU QID, (Reported) Desvenlafaxine Succinate 25 Mg Tab.er.24h, 25 MG PO DAILY, (Reported) Docusate Sodium 100 Mg Capsule, 100 MG PO BID, (Reported) Donepezil HCl 10 Mg Tablet, 10 MG PO HS, (Reported) Enalapril Maleate 10 Mg Tablet, 10 MG PO BID for 30 Days, #60 Ref 1 Prescribed by: KIM LAGOS on 02/19/17 1052 Fesoterodine Fumarate 4 Mg Tab.sr.24h, 4 MG PO DAILY, (Reported) Hydrocodone Bit/Acetaminophen 1 Each Tablet, 1 TAB PO TID PRN for PAIN, ( Reported) Ipratropium/Albuterol Sulfate 3 Ml Ampul.neb, 3 ML IH Q6H PRN for SHORTNESS OF BREATH, (Reported) Lactobacillus Acidophilus 1 Each Capsule, 500 MU PO QID, (Reported) Magnesium Hydroxide 400 Mg/5 Ml Oral.susp, 30 ML PO DAILY PRN for CONSTIPATION, (Reported) Omeprazole 10 Mg Capsule.dr, 10 MG PO DAILY, (Reported) Polyethylene Glycol 1 Ea Pack, 17 GM PO DAILY PRN for CONSTIPATION, (Reported) Senna 1 Tab Tablet, 1 TAB PO BID, (Reported) Thiamine HCl 50 Mg Tablet, 100 MG PO BID, (Reported) TAKES 2 (50MG) TABLETS Constitutional: see HPI Eyes: No Symptoms Reported Ears, Nose, Mouth, Throat: no symptoms reported Respiratory: no symptoms reported Cardiovascular: no symptoms reported Genitourinary: no symptoms reported Musculoskeletal: no symptoms reported Skin: no symptoms reported Psychiatric/Neurological: See HPI, Headache Past Qybvlrw-Rxxpbz-Scznyd Hx Patient Social History Recent Hopitalizations: No Immunizations Up To Date Date of Pneumonia Vaccine: Nov 06, 2016 Date of Influenza Vaccine: Sep 07, 2016 Surgeries HX Surgeries: No (UNKNOWN) Respiratory Hx Respiratory Disorders: No Cardiovascular Hx Cardiac Disorders: Yes Cardiac Disorders: Hypertension Neurological Hx Neurological Disorders: Yes Neurological Disorders: Dementia 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 Genitourinary Hx Genitourinary Disorders: Yes Genitourinary Disorders: UTI-Chronic Gastrointestinal Hx Gastrointestinal Disorders: Yes Gastrointestinal Disorders: Gastroesophageal Reflux Musculoskeletal Hx Musculoskeletal Disorders: Yes Musculoskeletal Disorders: Osteoporosis, Arthritis Endocrine Hx Endocrine Disorders: No HEENT HX ENT Disorders: No Cancer Hx Cancer: No Psychosocial Hx Psychiatric Problems: Yes Behavioral Health Disorders: Anxiety, Depression Integumentary HX Skin/Integumentary Disorder: No Blood Transfusions Hx Blood Disorders: No Physical Exam Vital Signs Vital Sign - Last 12Hours 05/06/17 13:20 Temp 97.5 Pulse 70 Resp 16 B/P (MAP) 170/83 Pulse Ox 98 O2 Delivery Room Air Capillary Refill : General Appearance: WD/WN, no apparent distress HEENT: PERRL/EOMI, other (There is a hematoma to the left side of the forehead with Steri-Strips in place covering a small laceration) Neck: non-tender, full range of motion Respiratory: no respiratory distress, no accessory muscle use Gastrointestinal: normal bowel sounds, non tender, soft Extremities: normal range of motion, non-tender, other (there is swelling and ecchymosis of the ring and middle and pointer finger of the left hand. The ring is very tight around the base of the finger and will need to be cut off. RN is doing this now.) Neurologic/Psychiatric: alert, disoriented x 3 Skin: normal color, warm/dry, other (small 0.5 semi-laceration to the left side of the forehead. This is closed with wound adhesive.) Dutch John Coma Score Best Eye Response: (4) Open Spontaneously Best Verbal Response: (4) Confused Conversation Best Motor Response: (6) Obeys Commands Jose Ramon Total: 14 Laceration Repair : Wound Location: Scalp Wound Length (cm): 0.5 Wound's Depth, Shape: linear Wound Explored: clean Other Closure Supply: Wound Adhesive Progress/Results/Core Measures Results/Orders Lab Results Laboratory Tests Test 05/06/17 13:25 Range/Units Urine Color YELLOW Urine Clarity CLEAR Urine pH 7 5-9 Urine Specific Ellinger 1.010 L 1.016-1.022 Urine Protein 1+ H NEGATIVE Urine Glucose (UA) NEGATIVE NEGATIVE Urine Ketones NEGATIVE NEGATIVE Urine Nitrite NEGATIVE NEGATIVE Urine Bilirubin NEGATIVE NEGATIVE Urine Urobilinogen NORMAL NORMAL MG/DL Urine Leukocyte Esterase 1+ H NEGATIVE Urine RBC (Auto) NEGATIVE NEGATIVE Urine RBC 0-2 /HPF Urine WBC 0-2 /HPF Urine Squamous Epithelial Cells 2-5 /HPF Urine Crystals NONE /LPF Urine Bacteria TRACE /HPF Urine Casts NONE /LPF Urine Mucus NEGATIVE /LPF Urine Culture Indicated NO My Orders Orders - CHUCKIE STRICKLAND APRN Ct Head/Cervical Spine Wo (05/06/17 13:29) Hand, Left, 3 Views (05/06/17 13:29) Pelvis (05/06/17 13:29) Chest 1 View, Ap/Pa Only (05/06/17 13:29) Ua Culture If Indicated (05/06/17 14:19) Vital Signs/I&O Vital Sign - Last 12Hours 05/06/17 13:20 Temp 97.5 Pulse 70 Resp 16 B/P (MAP) 170/83 Pulse Ox 98 O2 Delivery Room Air Diagnostic Imaging Diagonstic Imaging: CT Comments NAME: PAUL FINNEY [facility] REC#: [id number] PT STATUS: REG ER : 1930 PHYSICIAN: CHUCKIE STRICKLAND APRN ADMIT DATE: 05/06/17/ER Draft Date of Exam:05/06/17 CT HEAD/CERVICAL SPINE WO PROCEDURE: CT head and CT cervical spine without contrast. TECHNIQUE: Multiple contiguous axial images were obtained through the brain and cervical spine without the use of intravenous contrast. Sagittal and coronal reformations through the cervical spine were then performed. INDICATION: Fall. Laceration to the left forehead. FINDINGS: CT head: A small hematoma along the left frontal aspect of the scalp. No intracranial hemorrhage. There is extensive periventricular and deep white matter hypodensities compatible with chronic microvascular ischemic changes. There is no hydrocephalus. No extra-axial fluid collection is seen. The calvarium, the paranasal sinuses, and orbits appear grossly unremarkable. There is evidence of prior surgery along the anterior aspect of the globes on both sides, however. CT cervical spine: There is reversal of the lordotic curvature. There is 3 mm anterior translation of C3 over C4 and minimal anterior translation of C4 over C5 vertebra. There is also a right convexity curvature centered around the C4/5 level. The alignment of the facet joints is satisfactory with osseous fusion of the facet joints bilaterally involving C3/4 on the left side and C3 through C5 on the left. There is early fusion along the posterior aspect of C5/6 vertebral body levels suggested. The vertebral body heights are preserved. There is severe disc height loss at C5/6. The alignment of the lateral masses of C1 and C2 and the atlanto-occipital joints is satisfactory. No fracture is seen. The thyroid gland is enlarged with multiple nodules seen. This can be better evaluated with thyroid ultrasound. IMPRESSION: CT head: Left frontal scalp hematoma. No intracranial hemorrhage. CT cervical spine: Advanced degenerative changes and alignment abnormalities likely related to pre-existing degenerative changes. There is also a cystic lesion in the upper cervical spine as described. No fracture is seen. Dictated on workstation # [id number] Dict: 05/06/17 1402 Trans: 05/06/17 1414 [id number] Interpreted by: MELIDA VELAZQUEZ MD Electronically signed by: Departure Impression Impression: Primary Impression: Dementia Additional Impression: Scalp hematoma Disposition: SNF Condition: Stable Departure-Patient Inst. Decision time for Depature: 14:43 Referrals: PHYLLIS SAEED DO (PCP/Family) Primary Care Physician Patient Instructions: HEMATOMA Add. Discharge Instructions: 1. Ice pack to the scalp hematoma as needed for 30 minutes every 1-2 hours 2. Return to ER for any concerns or worsening symptoms 3. CHUCKIE STRICKLAND APRN May 06, 2017 13:32
--- NOTE | 2017-05-06 14:15 | Diagnostic Imaging Report ---
PROCEDURE: CT head and CT cervical spine without contrast. TECHNIQUE: Multiple contiguous axial images were obtained through the brain and cervical spine without the use of intravenous contrast. Sagittal and coronal reformations through the cervical spine were then performed. INDICATION: Fall. Laceration to the left forehead. FINDINGS: CT head: A small hematoma along the left frontal aspect of the scalp. No intracranial hemorrhage. There is extensive periventricular and deep white matter hypodensities compatible with chronic microvascular ischemic changes. There is no hydrocephalus. No extra-axial fluid collection is seen. The calvarium, the paranasal sinuses, and orbits appear grossly unremarkable. There is evidence of prior surgery along the anterior aspect of the globes on both sides, however. CT cervical spine: There is reversal of the lordotic curvature. There is 3 mm anterior translation of C3 over C4 and minimal anterior translation of C4 over C5 vertebra. There is also a right convexity curvature centered around the C4/5 level. The alignment of the facet joints is satisfactory with osseous fusion of the facet joints bilaterally involving C3/4 on the left side and C3 through C5 on the left. There is early fusion along the posterior aspect of C5/6 vertebral body levels suggested. The vertebral body heights are preserved. There is severe disc height loss at C5/6. The alignment of the lateral masses of C1 and C2 and the atlanto-occipital joints is satisfactory. No fracture is seen. The thyroid gland is enlarged with multiple nodules seen. This can be better evaluated with thyroid ultrasound. IMPRESSION: CT head: Left frontal scalp hematoma. No intracranial hemorrhage. CT cervical spine: Advanced degenerative changes and alignment abnormalities likely related to pre-existing degenerative changes. There is also a cystic lesion in the upper cervical spine as described. No fracture is seen. Dictated by: Dictated on workstation # [id number]
--- NOTE | 2017-05-06 14:16 | Diagnostic Imaging Report ---
INDICATION: Left hand injury from a fall. FINDINGS: Three views of the left hand show some degenerative changes of the interphalangeal joints of the fingers. There is also osteoarthritic change of the first carpometacarpal joint. There appears to be a healed fracture of the distal radius. IMPRESSION: Healed fracture of distal radius. Osteoarthritis. No acute abnormalities seen. Dictated by: Dictated on workstation # [id number]
[2017-05-06 14:34] LABS: BILIRUBIN,URINE NEGATIVE (NEGATIVE); KETONES,URINE NEGATIVE (NEGATIVE); LEUKOCYTE ESTERASE ,URINE 1+ (NEGATIVE); NITRITE,URINE NEGATIVE (NEGATIVE); PH,URINE 7 (5-9); PROTEIN,URINE 1+ (NEGATIVE); UROBILINOGEN,URINE NORMAL (NORMAL)
[2017-05-06 14:35] LABS: WBC,URINE 0-2 /HPF
[2017-05-06 15:16] VITALS: BP 168/80
--- NOTE | 2017-05-07 12:22 | Diagnostic Imaging Report ---
INDICATION: Injury from a fall. Pelvis. AP view of the pelvis shows moderate/ severe degenerative changes of the left hip with pinning of the femoral head and joint space narrowing. Right hip joint space has minimal joint space narrowing. Pelvic ring is intact. There are no fractures seen. IMPRESSION: Degenerative changes of the left hip. No acute abnormality seen. Dictated by: Dictated on workstation # [id number]
--- NOTE | 2017-05-07 12:30 | Diagnostic Imaging Report ---
INDICATION: Left forehead injury from a fall. EXAMINATION: Portable chest at 02:10 p.m. FINDINGS: Heart size and pulmonary vascularity are normal. Lungs are clear. There are no effusions or pneumothoraces. The lateral left seventh rib has been surgically resected. IMPRESSION: No acute abnormalities of the chest. Dictated by: Dictated on workstation # [id number]
== END 2017-05-06 15:16 ==
LOC: EDUNIT# 13:20 → ER 13:22
DX: S00.03XA Contusion of scalp, initial encounter (principal); G30.9 Alzheimer's disease, unspecified; F02.80 Dementia in other diseases classified elsewhere, unspecified severity, without behavioral disturbance, psychotic disturbance, mood disturbance, and anxiety; F41.8 Other specified anxiety disorders; I10 Essential (primary) hypertension; V00.811A Fall from moving wheelchair (powered), initial encounter
CPT/HCPCS: 70450; 71010; 72125; 72170; 73130; 81000; 99282

== ENCOUNTER → 2017-08-29 | Outpatient (CLI) | payer MEDICARE, MEDICAID ==
[2017-08-29 07:32] LABS: BILIRUBIN,URINE NEGATIVE (NEGATIVE); KETONES,URINE NEGATIVE (NEGATIVE); LEUKOCYTE ESTERASE ,URINE 3+ (NEGATIVE); NITRITE,URINE NEGATIVE (NEGATIVE); PH,URINE 5 (5-9); PROTEIN,URINE 2+ (NEGATIVE); UROBILINOGEN,URINE NORMAL (NORMAL)
[2017-08-29 08:24] LABS: CALCIUM OXALATE CRYSTALS,UR MODERATE /LPF; SQUAMOUS EPITHELIAL CELL,UR 0-2 /HPF; WBC,URINE 25-50 /HPF
== END ==
PROVIDERS: ATTEND Family Medicine
DX: R82.99 Other abnormal findings in urine (principal); Z87.440 Personal history of urinary (tract) infections
CPT/HCPCS: 81000; 87077; 87088; 87186

== ENCOUNTER → 2017-10-23 | Outpatient (CLI) | payer MEDICARE, MEDICAID ==
--- NOTE | 2017-10-23 10:13 | Diagnostic Imaging Report ---
EXAMINATION: Modified barium swallow. Indication: Dysphagia Different consistencies of fluid and food was given mixed with barium and swallowing was visualized under fluoroscopy. FLUOROSCOPY TIME: One minute and 5 seconds FINDINGS: Minimal aspiration seen with thin liquids. IMPRESSION: Minimal aspiration seen. Please refer to speech therapist's report for additional details . Dictated by: Dictated on workstation # [id number]
== END ==
LOC: RAD 08:35
PROVIDERS: ATTEND Family Medicine
DX: R13.10 Dysphagia, unspecified (principal)
CPT/HCPCS: 74230

== ENCOUNTER 2019-06-19 17:01 | Emergency (ER) | payer MEDICARE, MEDICAID ==
[~2019-06-19] VITALS: Ht 167.6 cm; Wt 61.2 kg
[~2019-06-19 17:01] MED LIST changes: +CARB15DR OU; -CARB15DR74 OU; -IPRA3AMP IH; +IPRA3AMP31 IH
[2019-06-19] MEDS ORDERED: NS IV 500 ML 500 ML IV ONE (17:25)
[2019-06-19 17:31] LABS: BASOPHILS % (AUTO) 0 % (0-10); EOSINOPHILS % (AUTO) 0 % (0-10); HEMATOCRIT 35 % (35-52); HEMOGLOBIN 11.1 G/DL (11.5-16.0); LYMPHOCYTES # (AUTO) 1.2 X 10^3 (1.0-4.0); LYMPHOCYTES % (AUTO) 18 % (12-44); MEAN CORPUSCULAR HEMOGLOBIN 29 PG (25-34); MEAN CORPUSCULAR HGB CONC 32 G/DL (32-36); MEAN CORPUSCULAR VOLUME 89 FL (80-99); MEAN PLATELET VOLUME 10.3 FL (7.4-10.4); MONOCYTES # (AUTO) 0.5 X 10^3 (0.0-1.0); MONOCYTES % (AUTO) 7 % (0-12); NEUTROPHILS # (AUTO) 5.1 X 10^3 (1.8-7.8); NEUTROPHILS % (AUTO) 75 % (42-75); PLATELET COUNT 159 10^3/uL (130-400); RED CELL DISTRIBUTION WIDTH 13.9 % (10.0-14.5); WHITE BLOOD COUNT 6.8 10^3/uL (4.3-11.0)
--- NOTE | 2019-06-19 17:32 | NUR ---
see scanned list for medications
--- OUTSIDE RECORDS SUMMARY | 2019-06-19 17:36 | XMS REPORT | Continuity of Care Document ---
Author Organization Unknown Address Unknown Phone Unavailable Allergies Active Description Code Type Severity Reaction Onset Reported/Identified Relationship to Patient Clinical Status Yes diclofenac [id number] Drug Allergy Unknown N/A 08/07/2014 Medications There is no data. 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 08/16/2014 [facility] 511.9 PLEURAL EFFUSION NOS 08/16/2014 [facility] 530.81 ESOPHAGEAL REFLUX 08/16/2014 [facility] 716.90 ARTHROPATHY NOS-UNSPEC 08/16/2014 [facility] Ot 719.45 JOINT PAIN-PELVIS 08/16/2014 [facility] 733.00 OSTEOPOROSIS NOS 08/16/2014 [facility] PHYLLIS Ot 959.09 INJURY OF FACE AND NECK 08/16/2014 [facility] 995.91 SEPSIS 08/16/2014 [facility] PHYLLIS NG Ot E849.7 ACCID IN RESIDENT INSTIT 08/16/2014 [facility] PHYLLIS NG Ot E888.9 FALL NOS 08/16/2014 [facility] PHYLLIS NG Ot V13.02 PERSONAL HISTORY, URINARY (TRACT) INFECT 10/17/2014 [facility] PHYLLIS Ot 511.9 10/17/2014 [facility] PHYLLIS NG Ot 518.0 10/17/2014 [facility] PHYLLIS NG Ot V67.09 10/17/2014 [facility] Ot 486 10/17/2014 [facility] 780.79 01/18/2015 Ot 473.9 CHRONIC SINUSITIS NOS 01/18/2015 Ot 924.11 CONTUSION OF KNEE 01/18/2015 Ot 959.7 LOWER LEG INJURY NOS 01/18/2015 Ot E000.8 OTHER EXTERNAL CAUSE STATUS 01/18/2015 Ot E849.7 ACCID IN RESIDENT INSTIT 01/18/2015 Ot E888.9 FALL NOS 02/23/2015 Ot 729.81 03/19/2015 Ot 729.81 12/14/2015 MADHAVDER PHYLLIS NG Ot R05 12/27/2015 DARLIN DO, PHYLLIS Carranza Ot R05 06/05/2016 DARRELL STAPLES DO Ot F03.90 UNSPECIFIED DEMENTIA WITHOUT BEHAVIORAL 06/05/2016 DARRELL STAPLES DO Ot S42.292A OTH DISP FX OF UPPER END OF LEFT HUMERUS 06/05/2016 JHOAN DARRELL NG Ot S59.912A UNSPECIFIED INJURY OF LEFT FOREARM, INIT 06/05/2016 DARRELL STAPLES DO Ot W01.0XXA FALL SAME LEV FROM SLIP/TRIP W/O STRIKE 06/05/2016 DARRELL STAPLES DO Ot Y92.[address] [facility] PLACE 06/05/2016 DARRELL STAPLES DO Ot Y99.8 OTHER EXTERNAL CAUSE STATUS 06/06/2016 JHOAN DARRELL NG Ot F03.90 UNSPECIFIED DEMENTIA WITHOUT BEHAVIORAL 06/06/2016 DARRELL STAPLES DO Ot S42.292A OTH DISP FX OF UPPER END OF LEFT HUMERUS 06/06/2016 DARRELL STAPLES DO Ot S59.912A UNSPECIFIED INJURY OF LEFT FOREARM, INIT 06/06/2016 DARRELL STAPLES DO Ot W01.0XXA FALL SAME LEV FROM SLIP/TRIP W/O STRIKE 06/06/2016 JHOAN DARRELL NG Ot Y92.[address] [facility] PLACE 06/06/2016 DARRELL STAPLES DO Ot Y99.8 OTHER EXTERNAL CAUSE STATUS 06/11/2016 DARRELL STAPLES DO Ot F03.90 UNSPECIFIED DEMENTIA WITHOUT BEHAVIORAL 06/11/2016 DARRELL STAPLES DO Ot S42.292A OTH DISP FX OF UPPER END OF LEFT HUMERUS 06/11/2016 JHOAN DARRELL NG Ot S59.912A UNSPECIFIED INJURY OF LEFT FOREARM, INIT 06/11/2016 DARRELL STAPLES DO Ot W01.0XXA FALL SAME LEV FROM SLIP/TRIP W/O STRIKE 06/11/2016 DARRELL STAPLES DO Ot Y92.[address] [facility] PLACE 06/11/2016 DARRELL STAPLES DO Ot Y99.8 OTHER EXTERNAL CAUSE STATUS 12/16/2016 PHYLLIS SAEED DO Ot R82.99 OTHER ABNORMAL FINDINGS IN URINE 12/16/2016 PHYLLIS SAEED DO Ot Z87.440 PERSONAL HISTORY OF URINARY (TRACT) INFE 12/18/2016 MADHAVDER DO, PHYLLIS Carranza Ot R82.99 OTHER ABNORMAL FINDINGS IN URINE 12/18/2016 DARLIN DO, PHYLLIS Carranza Ot Z87.440 PERSONAL HISTORY OF URINARY (TRACT) INFE 02/03/2017 MCKAYLALENDER DO, PHYLLIS Carranza Ot R82.99 OTHER ABNORMAL FINDINGS IN URINE 02/03/2017 DARLIN NG, PHYLLIS Carranza Ot Z87.440 PERSONAL HISTORY OF URINARY (TRACT) INFE 02/12/2017 GELLENDER DO, PHYLLIS Carranza Ot R82.99 OTHER ABNORMAL FINDINGS IN URINE 02/12/2017 MCKAYLALENDER DO, PHYLLIS Carranza Ot Z87.440 PERSONAL HISTORY OF URINARY (TRACT) INFE 02/16/2017 PRASHANT JJ DO Ot F03.90 UNSPECIFIED DEMENTIA WITHOUT BEHAVIORAL 02/16/2017 PRASHANT JJ DO Ot I10 ESSENTIAL (PRIMARY) HYPERTENSION 02/16/2017 PRASHANT JJ DO Ot R41.82 ALTERED MENTAL STATUS, UNSPECIFIED 02/16/2017 PRASHANT JJ DO Ot 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 02/17/2017 BRADY GUZMAN, VERONICA Carranza Ot 780.97 ALTERED MENTAL STATUS 02/17/2017 BRADY GUZMAN, VERONICA Carranza Ot 791.9 ABN URINE FINDINGS NEC 02/17/2017 DARLIN NGPHYLLIS Ot 511.9 PLEURAL EFFUSION NOS 02/17/2017 DARLIN NGPHYLLIS Ot 518.0 PULMONARY COLLAPSE 02/17/2017 DARLIN NGPHYLLIS Ot V67.09 SURGERY FOLLOW-UP, OTHER SURGERY 02/17/2017 DARLIN NGPHYLLIS Ot 486 PNEUMONIA, ORGANISM NOS 02/17/2017 DARLIN NGPHYLLIS Ot 780.79 OTH MALAISE FATIGUE 02/17/2017 Ot 729.81 SWELLING OF LIMB 02/17/2017 DARLIN NGPHYLLIS Ot R05 COUGH 02/17/2017 DARLIN NGPHYLLIS Ot R82.99 OTHER ABNORMAL FINDINGS IN URINE 02/17/2017 DARLIN NG, PHYLLIS Carranza Ot Z87.440 PERSONAL HISTORY OF URINARY (TRACT) INFE 02/17/2017 PRASHANT JJ DO Ot F03.90 UNSPECIFIED DEMENTIA WITHOUT BEHAVIORAL 02/17/2017 PRASHANT JJ DO Ot I10 ESSENTIAL (PRIMARY) HYPERTENSION 02/17/2017 АННА DO, PRASHANT Coon Ot R41.82 ALTERED MENTAL STATUS, UNSPECIFIED 02/17/2017 PRASHANT JJ DO Ot Z79.899 OTHER ASSISTED (CURRENT) DRUG THERAPY 02/18/2017 GELLENDER DO, PHYLLIS Carranza Ot F03.90 UNSPECIFIED DEMENTIA WITHOUT BEHAVIORAL 02/18/2017 [...] DO, PHYLLIS Carranza Ot R53.83 OTHER FATIGUE 02/21/2017 АННА DO PRASHANT Jaymie Ot F03.90 UNSPECIFIED DEMENTIA WITHOUT BEHAVIORAL 02/21/2017 АННА DO PRASHANT Jaymie Ot I10 ESSENTIAL (PRIMARY) HYPERTENSION 02/21/2017 АННА DO PRASHANT K Ot R41.82 ALTERED MENTAL STATUS, UNSPECIFIED 02/21/2017 АННА DO PRASHANT K Ot Z79.899 OTHER ASSISTED (CURRENT) DRUG THERAPY 03/07/2017 АННА DO PRASHANT K Ot F03.90 UNSPECIFIED DEMENTIA WITHOUT BEHAVIORAL 03/07/2017 АННА DO PRASHANT K Ot I10 ESSENTIAL (PRIMARY) HYPERTENSION 03/07/2017 АННА DO PRASHANT K Ot R41.82 ALTERED MENTAL STATUS, UNSPECIFIED 03/07/2017 PRASHANT JJ DO Ot Z79.899 OTHER ASSISTED (CURRENT) DRUG THERAPY 05/06/2017 BRADY GUZMAN, VERONICA Carranza Ot 780.97 ALTERED MENTAL STATUS 05/06/2017 BRADY GUZMAN, VERONICA Carranza Ot 791.9 ABN URINE FINDINGS NEC 05/06/2017 DARLIN NG PHYLLIS Carranza Ot 511.9 PLEURAL EFFUSION NOS 05/06/2017 DARLIN NG PHYLLIS Carranza Ot 518.0 PULMONARY COLLAPSE 05/06/2017 DARLIN NGPHYLLIS Ot V67.09 SURGERY FOLLOW-UP, OTHER SURGERY 05/06/2017 DARLIN NG, PHYLLIS Carranza Ot 486 PNEUMONIA, ORGANISM NOS 05/06/2017 DARLIN NGPHYLLIS Ot 780.79 OTH MALAISE FATIGUE 05/06/2017 Ot 729.81 SWELLING OF LIMB 05/06/2017 DARLIN NGPHYLLIS Ot R05 COUGH 05/06/2017 DARLIN NGPHYLLIS Ot R82.99 OTHER ABNORMAL FINDINGS IN URINE 05/06/2017 PHYLLIS SAEED DO Dillon Ot Z87.440 PERSONAL HISTORY OF URINARY (TRACT) INFE 05/06/2017 CHUCKIE STRICKLAND APRN Ot F02.80 DEMENTIA IN OTH DISEASES CLASSD ELSWHR W 05/06/2017 CHUCKIE STRICKLAND APRN Ot F41.8 OTHER SPECIFIED ANXIETY DISORDERS 05/06/2017 CHUCKIE STRICKLAND APRN Ot G30.9 ALZHEIMER'S DISEASE, UNSPECIFIED 05/06/2017 CHUCKIE STRICKLAND APRN Ot I10 ESSENTIAL (PRIMARY) HYPERTENSION 05/06/2017 CHUCKIE STRICKLAND APRN Ot S00.03XA CONTUSION OF SCALP, INITIAL ENCOUNTER 05/06/2017 CHUCKIE STRICKLAND APRN Ot S00.83XA CONTUSION OF OTHER PART OF HEAD, INITIAL 05/06/2017 CHUCKIE STRICKLAND APRN Ot V00.811A FALL FROM MOVING WHEELCHAIR (POWERED), I 05/08/2017 CHUCKIE STRICKLAND APRN Ot F02.80 DEMENTIA IN OTH DISEASES CLASSD ELSWHR W 05/08/2017 CHUCKIE STRICKLAND APRN Ot F41.8 OTHER SPECIFIED ANXIETY DISORDERS 05/08/2017 CHUCKIE STRICKLAND APRN Ot G30.9 ALZHEIMER'S DISEASE, UNSPECIFIED 05/08/2017 STRICKLAND, PETER J BATCH DUMPER Ot I10 ESSENTIAL (PRIMARY) HYPERTENSION 05/08/2017 CHUCKIE STRICKLAND BATCH DUMPER Ot S00.03XA CONTUSION OF SCALP, INITIAL ENCOUNTER 05/08/2017 CHUCKIE STRICKLAND BATCH DUMPER Ot S00.83XA CONTUSION OF OTHER PART OF HEAD, INITIAL 05/08/2017 CHUCKIE STRICKLAND BATCH DUMPER Ot V00.811A FALL FROM MOVING WHEELCHAIR (POWERED), I 09/07/2017 DARLIN DOPHYLLIS Ot R82.99 OTHER ABNORMAL FINDINGS IN URINE 09/07/2017 GELLENDER DO, PHYLLIS Carranza Ot Z87.440 PERSONAL HISTORY OF URINARY (TRACT) INFE 09/24/2017 GELLENDER DO, PHYLLIS Carranza Ot R82.99 OTHER ABNORMAL FINDINGS IN URINE 09/24/2017 GELLENDER DO, PHYLLIS Carranza Ot Z87.440 PERSONAL HISTORY OF URINARY (TRACT) INFE 09/28/2017 MCKAYLALENDER DO, PHYLLIS Carranza Ot N39.0 URINARY TRACT INFECTION, SITE NOT SPECIF 10/02/2017 GELVEKNATDER DOPHYLLIS Ot R82.99 OTHER ABNORMAL FINDINGS IN URINE 10/02/2017 GELLENDER DO, PHYLLIS Carranza Ot Z87.440 PERSONAL HISTORY OF URINARY (TRACT) INFE 10/20/2017 GELLENDER DO, PHYLLIS Carranza Ot N39.0 URINARY TRACT INFECTION, SITE NOT SPECIF 10/23/2017 GELPHYLLIS BEAVER DO Ot R13.14 DYSPHAGIA, PHARYNGOESOPHAGEAL PHASE 10/23/2017 GELLENDER DOPHYLLIS Ot R13.14 DYSPHAGIA, PHARYNGOESOPHAGEAL PHASE 10/27/2017 GELLENDER DOPHYLLIS Ot N39.0 URINARY TRACT INFECTION, SITE NOT SPECIF 11/17/2017 GELLENDER DO, PHYLLIS Carranza Ot R13.10 DYSPHAGIA, UNSPECIFIED 11/30/2017 GELLENDER DO, PHYLLIS Carranza Ot R13.10 DYSPHAGIA, UNSPECIFIED Procedures Code Description Performed By Performed On 34.91 THORACENTESIS 08/08/2014 34.52 THORACOSCOPIC DECORTICATION OF LUNG 08/10/2014 Results Test Result Range Complete urinalysis with reflex to culture - 12/11/16 14:10 Urine color determination YELLOW NRG Urine clarity determination CLEAR NRG Urine pH measurement by test strip 6 5-9 Specific gravity of urine by test strip [...] sediment leukocyte count by microscopy (number/high power field) RARE NRG Bacteria detection in urine sediment [...] glucose measurement by glucometer (mass/volume) - 02/16/17 18:54 Capillary blood glucose measurement by glucometer (mass/volume) 91 mg/dL 70-110 Complete blood count (CBC) with automated white blood cell (WBC) differential - 02/16/17 19:22 Blood leukocytes automated count (number/volume) 9.5 10*3/uL 4.3-11.0 Blood erythrocytes automated count (number/volume) 4.97 10*6/uL 4.35-5.85 Venous blood hemoglobin measurement (mass/volume) 13.9 g/dL 11.5-16.0 Blood hematocrit (volume fraction) 42 % 35-52 Automated erythrocyte mean corpuscular volume 85 [foz_us] 80-99 Automated erythrocyte mean corpuscular hemoglobin (mass per erythrocyte) 28 pg 25-34 Automated erythrocyte mean corpuscular hemoglobin concentration measurement (mass/volume) 33 g/dL 32-36 Automated erythrocyte distribution width ratio 14.3 % 10.0- 14.5 Automated blood platelet count (count/volume) 178 10*3/uL 130-400 Automated blood platelet mean volume measurement 10.0 [foz_us] 7.4-10.4 Automated blood neutrophils/100 leukocytes 75 % 42-75 Automated blood lymphocytes/100 leukocytes 17 % 12-44 Blood monocytes/100 leukocytes 8 % 0-12 Automated blood eosinophils/100 leukocytes 0 % 0-10 Automated blood basophils/100 leukocytes 0 % 0-10 Blood neutrophils automated count (number/volume) 7.1 10*3 1.8-7.8 Blood lymphocytes automated count (number/volume) 1.6 10*3 1.0-4.0 Blood monocytes automated count (number/volume) 0.8 10*3 0.0- 1.0 Automated eosinophil count 0.0 10*3/uL 0.0-0.3 Automated [...] Serum or plasma sodium measurement (moles/volume) 141 mmol/L 135-145 Serum or plasma potassium measurement (moles/volume) 3.9 mmol/L 3.6-5.0 Serum or plasma chloride measurement (moles/volume) 107 mmol/L 98-107 Carbon dioxide 24 mmol/L 21-32 Serum or plasma anion gap determination (moles/volume) 10 mmol/L 5-14 Serum or plasma urea nitrogen measurement (mass/volume) 23 mg/dL 7-18 Serum or plasma creatinine measurement (mass/volume) 0.80 mg/dL 0.60-1.30 Serum or plasma urea nitrogen/creatinine mass ratio 29 NRG Serum or plasma creatinine measurement with calculation of estimated glomerular filtration rate > NRG Serum or plasma glucose measurement (mass/volume) 104 mg/dL 70-105 Serum or plasma calcium measurement (mass/volume) 10.1 mg/dL 8.5-10.1 Serum or plasma total bilirubin measurement (mass/volume) 0.5 mg/dL 0.1-1.0 Serum or plasma alkaline phosphatase measurement (enzymatic activity/volume) 88 U/L 40-136 Serum or plasma aspartate aminotransferase measurement (enzymatic activity/volume) 21 U/L 5-34 Serum or plasma alanine aminotransferase measurement (enzymatic activity/volume) 18 U/L 0-55 Serum or plasma protein measurement (mass/volume) 7.3 g/dL 6.4-8.2 Serum or plasma albumin measurement (mass/volume) 3.9 g/dL 3.2-4.5 Magnesium - 02/16/17 19:22 Magnesium 2.0 mg/dL 1.8-2.4 Serum or plasma creatine kinase measurement (enzymatic activity/volume) - 02/16/17 19:22 Serum or plasma creatine kinase measurement (enzymatic activity/volume) 177 U/L 29-168 Serum or plasma creatine kinase MB measurement (enzymatic activity/volume) - 02/16/17 19:22 Serum or plasma creatine kinase MB measurement (enzymatic activity/volume) 7.1 ng/mL <6.6 Serum or plasma troponin i.cardiac measurement (mass/volume) - 02/16/17 19:22 Serum or plasma troponin i.cardiac measurement (mass/volume) < ng/mL <0.30 Serum or plasma thyrotropin measurement by detection limit <=0.05 miu/l (units/volume) - 02/16/17 19:22 Serum or plasma thyrotropin measurement by detection limit <=0.05 miu/l (units/volume) 2.35 u[iU]/mL 0.35-4.94 Complete urinalysis with reflex to culture - 02/16/17 19:58 Urine color determination YELLOW NRG Urine clarity determination CLEAR NRG Urine pH measurement by test strip 6 5-9 Specific gravity of urine by test strip [...] sediment leukocyte count by microscopy (number/high power field) [HPF] NRG Bacteria detection in urine sediment [...] 03:11 Blood leukocytes automated count (number/volume) 11.7 10*3/uL 4.3-11.0 Blood erythrocytes automated count (number/volume) 5.03 10*6/uL 4.35-5.85 Venous blood hemoglobin measurement (mass/volume) 14.0 g/dL 11.5-16.0 Blood hematocrit (volume fraction) 43 % 35-52 Automated erythrocyte mean corpuscular volume 85 [foz_us] 80-99 Automated erythrocyte mean corpuscular hemoglobin (mass per erythrocyte) 28 pg 25-34 Automated erythrocyte mean corpuscular hemoglobin concentration measurement (mass/volume) 33 g/dL 32-36 Automated erythrocyte distribution width ratio 14.2 % 10.0- 14.5 Automated blood platelet count (count/volume) 165 10*3/uL 130-400 Automated blood platelet mean volume measurement 10.0 [foz_us] 7.4-10.4 Automated blood neutrophils/100 leukocytes 89 % 42-75 Automated blood lymphocytes/100 leukocytes 8 % 12-44 Blood monocytes/100 leukocytes 4 % 0-12 Automated blood eosinophils/100 leukocytes 0 % 0-10 Automated blood basophils/100 leukocytes 0 % 0-10 Blood neutrophils automated count (number/volume) 10.4 10*3 1.8-7.8 Blood lymphocytes automated count (number/volume) 0.9 10*3 1.0-4.0 Blood monocytes automated count (number/volume) 0.4 10*3 0.0- 1.0 Automated eosinophil count 0.0 10*3/uL 0.0-0.3 Automated blood basophil count (count/volume) 0.0 10*3/uL 0.0-0.1 Comprehensive metabolic panel - 02/17/17 03:11 Serum or plasma sodium measurement (moles/volume) 138 mmol/L 135-145 Serum or plasma potassium measurement (moles/volume) 4.3 mmol/L 3.6-5.0 Serum or plasma chloride measurement (moles/volume) 105 mmol/L 98-107 Carbon dioxide 21 mmol/L 21-32 Serum or plasma anion gap determination (moles/volume) 12 mmol/L 5-14 Serum or plasma urea nitrogen measurement (mass/volume) 19 mg/dL 7-18 Serum or plasma creatinine measurement (mass/volume) 0.77 mg/dL 0.60-1.30 Serum or plasma urea nitrogen/creatinine mass [...] Serum or plasma aspartate aminotransferase measurement (enzymatic activity/volume) 24 U/L 5-34 Serum or plasma alanine aminotransferase measurement (enzymatic activity/volume) 19 U/L 0-55 Serum or plasma protein measurement (mass/volume) 7.4 g/dL 6.4-8.2 Serum or plasma albumin measurement (mass/volume) 4.0 g/dL 3.2-4.5 Magnesium - 02/17/17 03:11 Magnesium 1.9 mg/dL 1.8-2.4 Serum or plasma creatine kinase measurement (enzymatic activity/volume) - 02/17/17 03:11 Serum or plasma creatine kinase measurement (enzymatic activity/volume) 198 U/L 29-168 Serum or plasma creatine kinase MB measurement (enzymatic activity/volume) - 02/17/17 03:11 Serum or plasma creatine kinase MB measurement (enzymatic activity/volume) 7.8 ng/mL <6.6 Serum or plasma troponin i.cardiac measurement (mass/volume) - 02/17/17 03:11 Serum or plasma troponin i.cardiac measurement (mass/volume) < ng/mL <0.30 Serum or plasma amylase measurement (enzymatic activity/volume) - 02/17/17 03:11 Serum or plasma amylase measurement (enzymatic activity/volume) [...] Urine pH measurement by test strip 5 5-9 Specific gravity of urine by test strip [...] sediment leukocyte count by microscopy (number/high power field) [HPF] NRG Bacteria detection in urine sediment [...] 05:18 Blood leukocytes automated count (number/volume) 6.2 10*3/uL 4.3-11.0 Blood erythrocytes automated count (number/volume) 4.37 10*6/uL 4.35-5.85 Venous blood hemoglobin measurement (mass/volume) 12.2 g/dL 11.5-16.0 Blood hematocrit (volume fraction) 38 % 35-52 Automated erythrocyte mean corpuscular volume 86 [foz_us] 80-99 Automated erythrocyte mean corpuscular hemoglobin (mass per erythrocyte) 28 pg 25-34 Automated erythrocyte mean corpuscular hemoglobin concentration measurement (mass/volume) 32 g/dL 32-36 Automated erythrocyte distribution width ratio 14.3 % 10.0- 14.5 Automated blood platelet count (count/volume) 153 10*3/uL 130-400 Automated blood platelet mean volume measurement 10.0 [foz_us] 7.4-10.4 Automated blood neutrophils/100 leukocytes 70 % 42-75 Automated blood lymphocytes/100 leukocytes 22 % 12-44 Blood monocytes/100 leukocytes 8 % 0-12 Automated blood eosinophils/100 leukocytes 0 % 0-10 Automated blood basophils/100 leukocytes 0 % 0-10 Blood neutrophils automated count (number/volume) 4.3 10*3 1.8-7.8 Blood lymphocytes automated count (number/volume) 1.3 10*3 1.0-4.0 Blood monocytes automated count (number/volume) 0.5 10*3 0.0- 1.0 Automated eosinophil count 0.0 10*3/uL 0.0-0.3 Automated blood basophil count (count/volume) 0.0 10*3/uL 0.0-0.1 Comprehensive metabolic panel - 02/18/17 05:18 Serum or plasma sodium measurement (moles/volume) 141 mmol/L 135-145 Serum or plasma potassium measurement (moles/volume) 4.0 mmol/L 3.6-5.0 Serum or plasma chloride measurement (moles/volume) 110 mmol/L 98-107 Carbon dioxide 25 mmol/L 21-32 Serum or plasma anion gap determination (moles/volume) 6 mmol/L 5-14 Serum or plasma urea nitrogen measurement (mass/volume) 14 mg/dL 7-18 Serum or plasma creatinine measurement (mass/volume) 0.77 mg/dL 0.60-1.30 Serum or plasma urea nitrogen/creatinine mass [...] Serum or plasma aspartate aminotransferase measurement (enzymatic activity/volume) 20 U/L 5-34 Serum or plasma alanine aminotransferase measurement (enzymatic activity/volume) 15 U/L 0-55 Serum or plasma protein measurement (mass/volume) 6.2 g/dL 6.4-8.2 Serum or plasma albumin measurement (mass/volume) 3.4 g/dL 3.2-4.5 Complete urinalysis with reflex to culture - 05/06/17 13:25 Urine color determination YELLOW NRG Urine clarity determination CLEAR NRG Urine pH measurement by test strip 7 5-9 Specific gravity of urine by test strip 1.010 1.016-1.022 Urine protein assay by test strip, semi-quantitative 1+ NEGATIVE Urine glucose detection by automated test [...] sediment leukocyte count by microscopy (number/high power field) [HPF] NRG Bacteria detection in urine sediment by light microscopy TRACE NRG Squamous epithelial cells detection in urine sediment by light microscopy 2-5 NRG Crystals detection in urine sediment by light microscopy NONE NRG Casts detection in urine sediment by light microscopy NONE NRG Mucus detection in urine sediment by light microscopy NEGATIVE NRG Complete urinalysis with reflex to culture NO NRG Complete urinalysis with reflex to culture - 08/28/17 20:45 Urine color determination YELLOW NRG Urine clarity determination VERY CLOUDY NRG Urine pH measurement by test strip 5 5-9 Specific gravity of urine by test strip [...] NORMAL Urine leukocyte esterase detection by dipstick 3+ NEGATIVE Automated urine sediment erythrocyte count by microscopy (number/high power field) NONE NRG Automated urine sediment leukocyte count by microscopy (number/high power field) [HPF] NRG Bacteria detection in urine sediment by light microscopy NEGATIVE NRG Squamous epithelial cells detection in urine sediment by light microscopy 0-2 NRG Crystals detection in urine sediment by light microscopy PRESENT NRG Casts detection in urine sediment by light microscopy NONE NRG Mucus detection in urine sediment by light microscopy NEGATIVE NRG Complete urinalysis with reflex to culture YES NRG Amorphous sediment detection in urine sediment by light microscopy LARGE LUCIE URATES NRG Calcium oxalate crystals detection in urine sediment by light microscopy MODERATE NRG Bacterial urine culture - 08/28/17 20:45 Bacterial urine culture [id number] NRG COLONY COUNT >100,000/ML NRG FTX;REPORTABLE SENSITIVITY REPORTED 09/01/17 9:50 NR URINE CULTURE RESULTS PLUS [facility] Bacterial susceptibility panel - 08/28/17 20:45 Gentamicin susceptibility test by minimum inhibitory concentration <= NRG Trimethoprim/sulfamethoxazole susceptibility test by minimum inhibitoryconcentration <= NRG Ampicillin susceptibility test by minimum inhibitory concentration >= NRG Tobramycin susceptibility test by minimum inhibitory concentration <= NRG Cefazolin susceptibility test by minimum inhibitory concentration <= NRG Ceftriaxone susceptibility test by minimum inhibitory concentration <= NRG Ampicillin/sulbactam susceptibility test by minimum inhibitory concentration 16 NRG Piperacillin/tazobactam susceptibility test by minimum inhibitory concentration <= NRG Ciprofloxacin susceptibility test by minimum inhibitory concentration <= NRG Meropenem susceptibility test by minimum inhibitory concentration <= NRG Nitrofurantoin susceptibility test by minimum inhibitory concentration 32 NRG Aztreonam susceptibility test by minimum inhibitory concentration <= NRG Extended spectrum beta lactamase (ESBL) producing bacteria susceptibility test by minimum inhibitory concentration - [facility] Bacterial susceptibility panel - 08/28/17 20:45 Gentamicin susceptibility test by minimum inhibitory concentration <= NRG Trimethoprim/sulfamethoxazole susceptibility test by minimum inhibitoryconcentration >= NRG Ampicillin susceptibility test by minimum inhibitory concentration <= NRG Tobramycin susceptibility test by minimum inhibitory concentration <= NRG Cefazolin susceptibility test by minimum inhibitory concentration <= NRG Ceftriaxone susceptibility test by minimum inhibitory concentration <= NRG Ampicillin/sulbactam susceptibility test by minimum inhibitory concentration <= NRG Piperacillin/tazobactam susceptibility test by minimum inhibitory concentration <= NRG Ciprofloxacin susceptibility test by minimum inhibitory concentration 2 NRG Meropenem susceptibility test by minimum inhibitory concentration <= NRG Nitrofurantoin susceptibility test by minimum inhibitory concentration R NRG Aztreonam susceptibility test by minimum inhibitory concentration <= NRG Complete urinalysis with reflex to culture - 09/26/17 12:53 Urine color determination YELLOW NRG Urine clarity determination VERY CLOUDY NRG Urine pH measurement by test strip 8 5-9 Specific gravity of urine by test strip 1.015 1.016-1.022 Urine protein assay by test strip, semi-quantitative 1+ NEGATIVE Urine glucose detection by automated test strip NEGATIVE NEGATIVE Erythrocytes detection in urine sediment by light microscopy 1+ NEGATIVE Urine ketones detection by automated test strip NEGATIVE NEGATIVE Urine nitrite detection by test strip POSITIVE NEGATIVE Urine total bilirubin detection by test strip NEGATIVE NEGATIVE Urine urobilinogen measurement by automated test strip (mass/volume) NORMAL NORMAL Urine leukocyte esterase detection by dipstick 3+ NEGATIVE Automated urine sediment erythrocyte count by microscopy (number/high power field) NONE NRG Automated urine sediment leukocyte count by microscopy (number/high power field) TNTC NRG Bacteria detection in urine sediment by light microscopy LARGE NRG Crystals detection in urine sediment by light microscopy NONE NRG Casts detection in urine sediment by light microscopy NONE NRG Mucus detection in urine sediment by light microscopy NEGATIVE NRG Complete urinalysis with reflex to culture NRG Bacterial urine culture - 09/26/17 12:53 Bacterial urine culture [id number] NRG COLONY COUNT >100,000/ML NRG FTX;REPORTABLE SENSITIVITY REPORTED AT 0725, 09-28-17 NR URINE CULTURE RESULTS PLUS NRG Bacterial susceptibility panel - 09/26/17 12:53 Gentamicin susceptibility test by minimum inhibitory concentration <= NRG Trimethoprim/sulfamethoxazole susceptibility test by minimum inhibitoryconcentration <= NRG Ampicillin susceptibility test by minimum inhibitory concentration >= NRG Tobramycin susceptibility test by minimum inhibitory concentration <= NRG Cefazolin susceptibility test by minimum inhibitory concentration <= NRG Ceftriaxone susceptibility test by minimum inhibitory concentration <= NRG Ampicillin/sulbactam susceptibility test by minimum inhibitory concentration 16 NRG Piperacillin/tazobactam susceptibility test by minimum inhibitory concentration <= NRG Ciprofloxacin susceptibility test by minimum inhibitory concentration 0.5 NRG Meropenem susceptibility test by minimum inhibitory concentration <= NRG Nitrofurantoin susceptibility test by minimum inhibitory concentration <= NRG Aztreonam susceptibility test by minimum inhibitory concentration <= NRG Extended spectrum beta lactamase (ESBL) producing bacteria susceptibility test by minimum inhibitory concentration - NRG Encounters ACCT No. Visit Date/Time Discharge Status Pt. Type Provider Facility Loc./Unit Complaint [id number] 10/23/2017 08:35:00 10/23/2017 23:59:59 CLS Outpatient PHYLLIS SAEED DO [facility] RAD DYSPHAGIA ASPIRATION [id number] 09/26/2017 12:57:00 09/26/2017 23:59:59 CLS Outpatient PHYLLIS SAEED DO [facility] LABNPT F/U FROM ABT USAGE [id number] 08/29/2017 07:25:00 08/29/2017 23:59:59 CLS Outpatient PHYLLIS SAEED DO [facility] GLC UTI [id number] 05/06/2017 13:22:00 05/06/2017 15:16:00 DIS Emergency CHUCKIE STRICKLAND APRN [facility] ER FALL HEAD LAC/L HAND PAIN [id number] 02/17/2017 03:45:00 02/19/2017 16:25:00 DIS Inpatient PHYLLIS SAEED DO [facility] 4TH LETHARGY;NAUSEA VOMITING;HTN;AMS,DEMENTIA [id number] 02/16/2017 18:49:00 02/16/2017 20:56:00 DIS Emergency PRASHANT JJ DO [facility] ER FALL [id number] 12/11/2016 14:10:00 12/11/2016 23:59:59 CLS Outpatient PHYLLIS SAEED DO [facility] GLC [id number] 06/05/2016 01:18:00 06/05/2016 02:54:00 DIS Emergency DARRELL STAPLES DO [facility] ER L WRIST PAIN [id number] 11/26/2015 14:34:00 11/26/2015 23:59:59 CLS Outpatient PHYLLIS SAEED DO [facility] RAD COUGH [id number] 08/31/2014 10:25:00 08/31/2014 23:59:59 CLS Outpatient PHYLLIS SAEED DO [facility] LAB TIRED,PNEUMONIA [id number] 08/22/2014 11:37:00 08/22/2014 23:59:59 CLS Outpatient PHYLLIS SAEED DO [facility] RAD POST SURGERY [id number] 08/07/2014 00:04:00 08/16/2014 16:56:00 DIS Inpatient PHYLLIS SAEED DO [facility] SURGICAL SEPSIS,PNEUMONIA,AMS,FALL [id number] 08/04/2014 21:35:00 08/04/2014 23:59:59 CLS Outpatient VERONICA ABREU MD [facility] LAB ALTERED MENTAL STATUS [id number] 02/02/2015 13:04:00 Document Registration [id number] 01/18/2015 16:39:00 Document Registration [id number] 10/18/2012 14:05:00 Document Registration [id number] 03/22/2012 06:00:00 Document Registration
[2019-06-19 17:44] LABS: BUN/CREATININE RATIO 26; CALCIUM 10.6 MG/DL (8.5-10.1); CARBON DIOXIDE 24 MMOL/L (21-32); CHLORIDE 105 MMOL/L (98-107); CREATININE SERUM 0.85 MG/DL (0.60-1.30); GFR ESTIMATED > 60; GLUCOSE 93 MG/DL (70-105); MAGNESIUM 1.7 MG/DL (1.8-2.4); POTASSIUM 4.3 MMOL/L (3.6-5.0); SODIUM 141 MMOL/L (135-145)
--- NOTE | 2019-06-19 17:47 | ED GI ---
General Chief Complaint: Abdominal/GI Problems Stated Complaint: DIARRHEA Nursing Triage Note: Transferred per staff from [facility]. Dr. saeed is requesting labs and fluids for patient. Has had diarrhea since yesterday. Patient is confused but denies pain. Abd is soft and nontender, flat Sepsis Screen: No Definite Risk Source of Information: Patient Exam Limitations: No Limitations History of Present Illness Date Seen by Provider: Jun 19, 2019 Time Seen by Provider: 17:11 Initial Comments This pleasant 89-year-old female group home patient with dementia is brought to the emergency room due to concerns about watery stools today. She has had problems with constipation and is on numerous stool softeners and laxatives. There was concern that she may have problems with volume status and electrolytes due to the watery stools today. She was brought for hydration and evaluation of electrolytes. Patient has no complaints. Her abdomen is soft and nontender. The transporter who brought her states the patient's pain appears normal. Allergies and Home Medications Allergies Coded Allergies: diclofenac (Verified Allergy, Unknown, 08/07/14) Home Medications Alendronate Sodium 70 Mg Tablet, 70 MG PO Brady, (Reported) Alprazolam 1 Mg Tablet, 1 TAB PO TID, (Reported) Alprazolam 1 Mg Tablet, 1 MG PO Q12H PRN for ANXIETY, (Reported) Calcium Carbonate/Vitamin D3 1 Each Tablet, 1 TAB PO BID, (Reported) Carboxymethylcellulose Sodium 15 Ml Drops, 1 DROP OU QID, (Reported) Desvenlafaxine Succinate 25 Mg Tab.er.24h, 25 MG PO DAILY, (Reported) Docusate Sodium 100 Mg Capsule, 100 MG PO BID, (Reported) Donepezil HCl 10 Mg Tablet, 10 MG PO HS, (Reported) Enalapril Maleate 10 Mg Tablet, 10 MG PO BID Prescribed by: KIM LAGOS on 02/19/17 1052 Fesoterodine Fumarate 4 Mg Tab.sr.24h, 4 MG PO DAILY, (Reported) Hydrocodone Bit/Acetaminophen 1 Each Tablet, 1 TAB PO TID PRN for PAIN, (Repo rted) Ipratropium/Albuterol Sulfate 3 Ml Ampul.neb, 3 ML IH Q6H PRN for SHORTNESS OF BREATH, (Reported) Lactobacillus Acidophilus 1 Each Capsule, 500 MU PO QID, (Reported) Magnesium Hydroxide 400 Mg/5 Ml Oral.susp, 30 ML PO DAILY PRN for CONSTIPATION, (Reported) Omeprazole 10 Mg Capsule.dr, 10 MG PO DAILY, (Reported) Polyethylene Glycol 1 Ea Pack, 17 GM PO DAILY PRN for CONSTIPATION, (Reported) Senna 1 Tab Tablet, 1 TAB PO BID, (Reported) Thiamine HCl 50 Mg Tablet, 100 MG PO BID, (Reported) TAKES 2 (50MG) TABLETS Patient Home Medication List Home Medication List Reviewed: Yes Review of Systems Review of Systems Constitutional: no symptoms reported EENTM: No Symptoms Reported Respiratory: No Symptoms Reported Cardiovascular: No Symptoms Reported Gastrointestinal: See HPI Genitourinary: No Symptoms Reported Musculoskeletal: no symptoms reported Skin: no symptoms reported Psychiatric/Neurological: No Symptoms Reported Endocrine: No Symptoms Reported Hematologic/Lymphatic: No Symptoms Reported Past Kkfjsfi-Sdbnnk-Rbovnb Hx Past Med/Social Hx: Reviewed Nursing Past Med/Soc Hx Patient Social History Alcohol Use: Denies Use Recreational Drug Use: No Smoking Status: Never a Smoker Recent Foreign Travel: No Contact w/Someone Who Travel: No Recent Infectious Disease Expo: No Recent Hopitalizations: No Physical Abuse: No Sexual Abuse: No Mistreated: No Fear: No Immunizations Up To Date Date of Pneumonia Vaccine: Nov 06, 2016 Date of Influenza Vaccine: Sep 07, 2016 Past Medical History Surgeries: No (UNKNOWN) Respiratory: No Cardiac: Yes Hypertension Neurological: Yes Dementia, Parkinson's Disease VET TECH History: Menopausal UTI-Chronic Gastrointestinal: Yes Gastroesophageal Reflux, Chronic Constipation Musculoskeletal: Yes Osteoporosis, Arthritis Endocrine: No Cancer: No Psychosocial: Yes Sleep Difficulties, Anxiety, Depression Integumentary: No Blood Disorders: No Physical Exam Vital Signs Vital Signs - First Documented 06/19/19 17:07 Temp 98.9 Pulse 76 Resp 16 B/P (MAP) 134/75 (94) Pulse Ox 99 Capillary Refill : Less Than 3 Seconds Height/Weight/BMI Height: 5'6.00" Weight: 135lbs. 0oz. 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, no motor/sensory deficits, alert, normal mood/affect, other (confusion related to dementia is at baseline) Skin: normal color, warm/dry Progress/Results/Core Measures Results/Orders Lab Results Laboratory Tests Test 06/19/19 17:22 Range/Units White Blood Count 6.8 4.3-11.0 10^3/uL Red Blood Count 3.88 L 4.35-5.85 10^6/uL Hemoglobin 11.1 L 11.5-16.0 G/DL Hematocrit 35 35-52 % Mean Corpuscular Volume 89 80-99 FL Mean Corpuscular Hemoglobin 29 25-34 PG Mean Corpuscular Hemoglobin Concent 32 32-36 G/DL Red Cell Distribution Width 13.9 10.0-14.5 % Platelet Count 159 130-400 10^3/uL Mean Platelet Volume 10.3 7.4-10.4 FL Neutrophils (%) (Auto) 75 42-75 % Lymphocytes (%) (Auto) 18 12-44 % Monocytes (%) (Auto) 7 0-12 % Eosinophils (%) (Auto) 0 0-10 % Basophils (%) (Auto) 0 0-10 % Neutrophils # (Auto) 5.1 1.8-7.8 X 10^3 Lymphocytes # (Auto) 1.2 1.0-4.0 X 10^3 Monocytes # (Auto) 0.5 0.0-1.0 X 10^3 Eosinophils # (Auto) 0.0 0.0-0.3 10^3/uL Basophils # (Auto) 0.0 0.0-0.1 10^3/uL Sodium Level 141 135-145 MMOL/L Potassium Level 4.3 3.6-5.0 MMOL/L Chloride Level 105 98-107 MMOL/L Carbon Dioxide Level 24 21-32 MMOL/L Anion Gap 12 5-14 MMOL/L Blood Urea Nitrogen 22 H 7-18 MG/DL Creatinine 0.85 0.60-1.30 MG/DL Estimat Glomerular Filtration Rate > 60 BUN/Creatinine Ratio 26 Glucose Level 93 70-105 MG/DL Calcium Level 10.6 H 8.5-10.1 MG/DL Magnesium Level 1.7 L 1.8-2.4 MG/DL My Orders Orders - JAMES DE LOS SANTOS MD Basic Metabolic Panel (06/19/19 17:25) Cbc With Automated Diff (06/19/19 17:25) Magnesium (06/19/19 17:25) Ed Iv/Invasive Line Start (06/19/19 17:25) Ns Iv 500 Ml (Sodium Chloride 0.9%) (06/19/19 17:25) Medications Given in ED Current Medications Medications Dose Ordered Sig/Beka Route Start Time Stop Time Status Last Admin Dose Admin Sodium Chloride 500 ml @ 0 mls/hr Q0M ONCE IV 06/19/19 17:25 06/19/19 17:27 DC 06/19/19 17:30 0 MLS/HR Vital Signs/I&O 06/19/19 17:07 Temp 98.9 Pulse 76 Resp 16 B/P (MAP) 134/75 (94) Pulse Ox 99 Blood Pressure Mean: 94 Progress Progress Note : Progress Note Basic labs were unremarkable. 500 mL normal saline was infused. Patient was discharged home. Departure Impression Primary Impression: Watery stools Disposition: HOME, SELF-CARE Condition: Improved Departure-Patient Inst. Decision time for Depature: 17:46 Referrals: PHYLLIS SAEED DO (PCP/Family) Primary Care Physician Patient Instructions: Constipation, Adult (DC) Add. Discharge Instructions: Hold laxatives and stool softeners. Call Dr. Saeed on Thursday with an update on patient's status. Return to care if there are worsening symptoms. Encourage plenty of clear liquids. All discharge instructions reviewed with patient and/or family. Voiced understanding. Copy Copies To 1: PHYLLIS SAEED JOSHUA T MD Jun 19, 2019 17:47
[2019-06-19 18:07] VITALS: BP 138/68
== END 2019-06-19 18:06 | disposition home or self-care (01) ==
LOC: EDUNIT# 17:01 → ER 17:02
DX: R19.7 Diarrhea, unspecified (principal); F03.90 Unspecified dementia, unspecified severity, without behavioral disturbance, psychotic disturbance, mood disturbance, and anxiety; I10 Essential (primary) hypertension; G20 Parkinson's disease; F02.80 Dementia in other diseases classified elsewhere, unspecified severity, without behavioral disturbance, psychotic disturbance, mood disturbance, and anxiety; K21.9 Gastro-esophageal reflux disease without esophagitis; M81.0 Age-related osteoporosis without current pathological fracture; F41.9 Anxiety disorder, unspecified; F32.9 Major depressive disorder, single episode, unspecified; Z87.19 Personal history of other diseases of the digestive system; Z88.6 Allergy status to analgesic agent
CPT/HCPCS: 36415; 80048; 83735; 85025

== ENCOUNTER 2019-06-21 20:19 | Emergency (ER) | payer MEDICARE, MEDICAID ==
[~2019-06-21] VITALS: Ht 167.6 cm; Wt 61.2 kg
--- NOTE | 2019-06-21 20:27 | ED Head Injury ---
General Stated Complaint: FELL Source: EMS Exam Limitations: no limitations History of Present Illness Date Seen by Provider: Jun 21, 2019 Time Seen by Provider: 20:25 Initial Comments This demented 89-year-old white [facility] this evening onto her face and has a left forehead small laceration. No other complaints of pain. No anticoagulant use. Occurred: just prior to arrival Severity: moderate Location: frontal Method of Injury: direct blow, fell Loss of Consciousness: no loss of consciousness Associated Systoms: Denies Symptoms Allergies and Home Medications Allergies Coded Allergies: diclofenac (Verified Allergy, Unknown, 08/07/14) Home Medications Alendronate Sodium 70 Mg Tablet, 70 MG PO Brady, (Reported) Alprazolam 1 Mg Tablet, 1 TAB PO TID, (Reported) Alprazolam 1 Mg Tablet, 1 MG PO Q12H PRN for ANXIETY, (Reported) Calcium Carbonate/Vitamin D3 1 Each Tablet, 1 TAB PO BID, (Reported) Carboxymethylcellulose Sodium 15 Ml Drops, 1 DROP OU QID, (Reported) Desvenlafaxine Succinate 25 Mg Tab.er.24h, 25 MG PO DAILY, (Reported) Docusate Sodium 100 Mg Capsule, 100 MG PO BID, (Reported) Donepezil HCl 10 Mg Tablet, 10 MG PO HS, (Reported) Enalapril Maleate 10 Mg Tablet, 10 MG PO BID Prescribed by: KIM LAGOS on 02/19/17 1052 Fesoterodine Fumarate 4 Mg Tab.sr.24h, 4 MG PO DAILY, (Reported) Hydrocodone Bit/Acetaminophen 1 Each Tablet, 1 TAB PO TID PRN for PAIN, (Reported) Ipratropium/Albuterol Sulfate 3 Ml Ampul.neb, 3 ML IH Q6H PRN for SHORTNESS OF BREATH, (Reported) Lactobacillus Acidophilus 1 Each Capsule, 500 MU PO QID, (Reported) Magnesium Hydroxide 400 Mg/5 Ml Oral.susp, 30 ML PO DAILY PRN for CONSTIPATION, (Reported) Omeprazole 10 Mg Capsule.dr, 10 MG PO DAILY, (Reported) Polyethylene Glycol 1 Ea Pack, 17 GM PO DAILY PRN for CONSTIPATION, (Reported) Senna 1 Tab Tablet, 1 TAB PO BID, (Reported) Thiamine HCl 50 Mg Tablet, 100 MG PO BID, (Reported) TAKES 2 (50MG) TABLETS Patient Home Medication List Home Medication List Reviewed: Yes Review of Systems Review of Systems Constitutional: see HPI Eyes: No Symptoms Reported Ears, Nose, Mouth, Throat: no symptoms reported Respiratory: no symptoms reported Cardiovascular: no symptoms reported Genitourinary: no symptoms reported Musculoskeletal: no symptoms reported Skin: no symptoms reported Psychiatric/Neurological: No Symptoms Reported Endocrine: No Symptoms Reported Hematologic/Lymphatic: No Symptoms Reported Past Vighsot-Opxfsu-Kwyhjf Hx Patient Social History Recent Foreign Travel: No Contact w/Someone Who Travel: No Recent Hopitalizations: No Immunizations Up To Date Date of Pneumonia Vaccine: Nov 06, 2016 Date of Influenza Vaccine: Sep 07, 2016 Past Medical History Surgeries: No (UNKNOWN) Respiratory: No Cardiac: Yes Hypertension Neurological: Yes Dementia, Parkinson's Disease 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 0oz. 61.009992zj; 29.3 BMI Method:Estimated General Appearance: WD/WN, no apparent distress HEENT: PERRL/EOMI, normal ENT inspection Neck: non-tender, full range of motion Respiratory: no respiratory distress, no accessory muscle use Gastrointestinal: non tender, soft Psychiatric: alert, oriented x 3 Crainal Nerves: normal hearing, normal speech, PERRL Motor/Sensory: no motor deficit, no sensory deficit Skin: normal color, warm/dry Jose Ramon Coma Score Best Eye Response: (4) Open Spontaneously Best Verbal Response: (4) Confused Conversation Best Motor Response: (6) Obeys Commands [place] Total: 14 Images 1 - Procedures/Interventions Wound Location: Face Wound Length (cm): 0.5 Wound's Depth, Shape: linear, sub Q Wound Explored: clean Other Closure Supply: Wound Adhesive Progress/Results/Core Measures Results/Orders My Orders Orders - CHUCKIE STRICKLAND WINE CONSULTANT Pelvis (06/21/19 20:22) Ct Head/Cervical Spine Wo (06/21/19 20:22) Dipht,Pertuss(Acell),Tet Adult (Boostrix (06/21/19 21:30) Medications Given in ED Current Medications Medications Dose Ordered Sig/Beka Route Start Time Stop Time Status Last Admin Dose Admin Diphtheria/ Tetanus/Acell Pertussis 0.5 ml ONCE ONCE IM 06/21/19 21:30 06/21/19 21:31 DC 06/21/19 21:25 0.5 ML Vital Signs/I&O 06/21/19 20:19 Temp 98.0 Pulse 63 Resp 20 B/P (MAP) 124/60 (81) Pulse Ox 98 Departure Communication (Admissions) Small laceration at the hairline left side of the forehead without active bleeding cleaned and closed with glue Impression Primary Impression: Dementia Qualified Codes: F03.90 - Unspecified dementia without behavioral disturbance Additional Impression: Scalp laceration Qualified Codes: S01.01XA - Laceration without foreign body of scalp, initial encounter Disposition: HOME, SELF-CARE Condition: Stable Departure-Patient Inst. Decision time for Depature: 21:19 Referrals: PHYLLIS SAEED DO (PCP/Family) Primary Care Physician Patient Instructions: Laceration Repair With Glue (DC) CHUCKIE STRICKLAND APRN Jun 21, 2019 20:27
--- NOTE | 2019-06-21 21:00 | Diagnostic Imaging Report ---
INDICATION: Fall, pain FINDINGS: There has been no change from study of 05/06/2017. 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 Pelvic rings are nonacute. The symphysis and SI joints revealed no diastases. No dislocation, avulsion or other fracture. IMPRESSION: Stable chronic findings Dictated by: Dictated on workstation # [id number]
--- NOTE | 2019-06-21 21:16 | Diagnostic Imaging Report ---
PROCEDURE: CT head and CT cervical spine without contrast. TECHNIQUE: Multiple contiguous axial images were obtained through the brain and cervical spine without the use of intravenous contrast. Sagittal and coronal reformations through the cervical spine were then performed. Auto Exposure Controls were utilized during the CT exam to meet ALARA standards for radiation dose reduction. INDICATION: Fall, lacerations to the left forehead. FINDINGS: CT HEAD: There is no intracerebral hemorrhage, no acute extra-axial fluid collection. There is atrophy/white matter disease as chronic findings. No calvarial deformity or paranasal sinus air-fluid level is revealed. No evidence for elevated pressures. CT CERVICAL SPINE: Reversal of lordosis at the lower cervical spine with anterolisthesis grade 1, C3 on C4, unchanged degenerative disc space narrowing remains most severe at the C5-C6 level, unchanged. There is hypertrophic facet arthrosis throughout the cervical spine. There are atherosclerotic carotid vascular calcifications. There is no identifiable fracture deformity, no dislocation. Some tilting of the head to the left. No lateral listhesis. The C1 ring is intact. The odontoid intact. IMPRESSION: 1. CT HEAD: Chronic senescent changes with no hemorrhage or fracture deformity. 2. CT CERVICAL SPINE: Advanced degenerative changes with chronic degenerative listhesis and spondylosis however no fracture or acute abnormality identified. No change from prior. Dictated by: Dictated on workstation # [id number]
[2019-06-21 21:29] VITALS: BP 122/64
--- NOTE | 2019-06-21 21:29 | NUR ---
ZACHERY PAEZ OF [facility], [place], [facility] NOTIFIED OF PATIENT DISCHARGE FROM THE ER AND PATIENT REDDINESS TO BE PICKED UP AND RETURNED TO THE GROUP HOME.
[2019-06-21] MEDS ORDERED: TETANUS,DIPTH,PERTUSS P/F (BOOSTRIX) 0.5 ML VIAL IM ONE (21:30)
--- NOTE | 2019-06-21 22:18 | NUR ---
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
--- NOTE | 2019-06-21 22:45 | NUR ---
PATIENT IS PICKED UP BY STAFF FROM [facility] VIA PRIVATE VEHICLE.
== END 2019-06-21 22:44 | disposition home or self-care (01) ==
LOC: EDUNIT# 20:19 → ER 20:21
DX: S01.01XA Laceration without foreign body of scalp, initial encounter (principal); G20 Parkinson's disease; F02.80 Dementia in other diseases classified elsewhere, unspecified severity, without behavioral disturbance, psychotic disturbance, mood disturbance, and anxiety; I10 Essential (primary) hypertension; F41.9 Anxiety disorder, unspecified; F32.9 Major depressive disorder, single episode, unspecified; K21.9 Gastro-esophageal reflux disease without esophagitis; Z23 Encounter for immunization; Z88.6 Allergy status to analgesic agent; W19.XXXA Unspecified fall, initial encounter; W22.8XXA Striking against or struck by other objects, initial encounter; Y92.129 Unspecified place in nursing home as the place of occurrence of the external cause
CPT/HCPCS: 12001; 70450; 72125; 72170; 90471; 90715

== ENCOUNTER 2019-11-13 14:12 | Emergency (ER) | payer MEDICARE, MEDICAID ==
[~2019-11-13] VITALS: Ht 162 cm; Wt 61.0 kg
--- NOTE | 2019-11-13 14:22 | ED Upper Extremity ---
General Stated Complaint: FALL Source: RN/MD, RN notes reviewed, EMS notes reviewed, [facility] records History of Present Illness Date Seen by Provider: Nov 13, 2019 Time Seen by Provider: 14:19 Initial Comments To ER purulence from [facility] with reports of an unwitnessed fall and subsequent complaining of right hip pain. This occurred just prior to arrival. Onset: just prior to arrival Severity: moderate Pain/Injury Location: right other (right hip) Method of Injury: fell Modifying Factors: Worse With Movement Allergies and Home Medications Allergies Coded Allergies: diclofenac (Verified Allergy, Unknown, 08/07/14) Home Medications Alendronate Sodium 70 Mg Tablet, 70 MG PO Brady, (Reported) Alprazolam 1 Mg Tablet, 1 TAB PO TID, (Reported) Alprazolam 1 Mg Tablet, 1 MG PO Q12H PRN for ANXIETY, (Reported) Calcium Carbonate/Vitamin D3 1 Each Tablet, 1 TAB PO BID, (Reported) Carboxymethylcellulose Sodium 15 Ml Drops, 1 DROP OU QID, (Reported) Desvenlafaxine Succinate 25 Mg Tab.er.24h, 25 MG PO DAILY, (Reported) Docusate Sodium 100 Mg Capsule, 100 MG PO BID, (Reported) Donepezil HCl 10 Mg Tablet, 10 MG PO HS, (Reported) Enalapril Maleate 10 Mg Tablet, 10 MG PO BID Prescribed by: KIM LAGOS on 02/19/17 1052 Fesoterodine Fumarate 4 Mg Tab.sr.24h, 4 MG PO DAILY, (Reported) Hydrocodone Bit/Acetaminophen 1 Each Tablet, 1 TAB PO TID PRN for PAIN, (Reported) Ipratropium/Albuterol Sulfate 3 Ml Ampul.neb, 3 ML IH Q6H PRN for SHORTNESS OF BREATH, (Reported) Lactobacillus Acidophilus 1 Each Capsule, 500 MU PO QID, (Reported) Magnesium Hydroxide 400 Mg/5 Ml Oral.susp, 30 ML PO DAILY PRN for CONSTIPATION, (Reported) Omeprazole 10 Mg Capsule.dr, 10 MG PO DAILY, (Reported) Polyethylene Glycol 1 Ea Pack, 17 GM PO DAILY PRN for CONSTIPATION, (Reported) Senna 1 Tab Tablet, 1 TAB PO BID, (Reported) Thiamine HCl 50 Mg Tablet, 100 MG PO BID, (Reported) TAKES 2 (50MG) TABLETS Patient Home Medication List Home Medication List Reviewed: Yes Review of Systems Constitutional: see HPI EENTM: see HPI Respiratory: no symptoms reported Cardiovascular: no symptoms reported Genitourinary: no symptoms reported Musculoskeletal: see HPI Skin: no symptoms reported Psychiatric/Neurological: No Symptoms Reported Past Nsxfphl-Maiykh-Mqudfh Hx Patient Social History Recent Hopitalizations: No Immunizations Up To Date Date of Pneumonia Vaccine: Nov 06, 2016 Date of Influenza Vaccine: Sep 07, 2016 Past Medical History Surgeries: No (UNKNOWN) Respiratory: No Cardiac: Yes Hypertension 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 0oz. [id number]; 29.3 BMI Method:Estimated General Appearance: WD/WN, no apparent distress, thin, other (frail) HEENT: PERRL/EOMI, normal ENT inspection, other (no scalp hematoma or sign of injury) Neck: non-tender, full range of motion Respiratory: no respiratory distress, no accessory muscle use Gastrointestinal: normal bowel sounds, non tender, soft Shoulder: normal inspection, non-tender Elbow/Forearm: normal inspection, non-tender Wrist: Yes normal inspection, Yes non-tender Hand: normal inspection, non-tender Neurologic/Psychiatric: alert, normal mood/affect, oriented x 3 Skin: normal color, warm/dry When I palpate the right hip there is no tenderness, when I passively move the right hip adduction/abduction/flexing there is no pain. However when she was helped up to the side of the bed she puts her hand over the right hip as if it hurts. Progress/Results/Core Measures Results/Orders My Orders Orders - CHUCKIE STRICKLAND APRN Pelvis With Right Hip 2-3views (11/13/19 14:17) Hydrocodone/Apap 5/325 Tablet (Lortab 5 (11/13/19 14:30) Medications Given in ED Current Medications Medications Dose Ordered Sig/Beka Route Start Time Stop Time Status Last Admin Dose Admin Acetaminophen/ Hydrocodone Bitart 1 tab ONCE ONCE PO 11/13/19 14:30 11/13/19 14:31 DC 11/13/19 14:42 1 TAB Vital Signs/I&O 11/13/19 14:12 Temp 36.5 Pulse 78 Resp 16 B/P (MAP) 115/64 (81) Departure Communication (Admissions) 1420-there is no scalp hematoma or laceration or sign of head injury. This was an unwitnessed fall. She may have hit her head but she is in the [facility], DO NOT RESUSCITATE ON HOSPICE. Thus, any intracranial findings would be nonoperative and therefore will not do CT imaging of head/cervical spine. [phone]-spoke with the patient's son Epifanio Sanchez at [phone]. He agrees to proceed with nonoperative treatment of this intertrochanteric right hip fracture. I also spoke with Dr. Enciso who agrees she would not likely recover well from operative repair of this. [facility], we will make her nonweightbearing on the right hip, assistance with transfers, increase her hydrocodone from 1 tablet 3 times a day to 1 tablet every [address] Saeed was also updated on this plan and is agreeable. Impression Primary Impression: Closed right hip fracture Qualified Codes: S72.001A - Fracture of unspecified part of neck of right femur, initial encounter for closed fracture Disposition: 03 XFER SNF Condition: Improved Departure-Patient Inst. Decision time for Depature: 14:51 Referrals: PHYLLIS SAEED DO (PCP/Family) Primary Care Physician Patient Instructions: Hip Fracture (DC) Copy Copies To 1: PHYLLIS SAEED PETER J APRN Nov 13, 2019 14:22
--- NOTE | 2019-11-13 14:25 | NUR ---
SEE LIST FOR CURRENT MEDS
[2019-11-13] MEDS ORDERED: HYDROcodone/APAP 5 MG/325 MG (LORTAB) TAB PO ONE (14:30)
--- NOTE | 2019-11-13 14:52 | Diagnostic Imaging Report ---
INDICATION: Unwitnessed fall, right hip pain. EXAMINATION: Right hip from 11/13/2019. FINDINGS: Three views of the right hip. There is a fracture of the right femoral neck which appears to extend into the intertrochanteric aspect of the femur. The hip joint itself is intact with no dislocation appreciated. Left hip joint demonstrates diffuse degenerative disease, narrowing, spurring and subchondral sclerosis. AVN not excluded. IMPRESSION: 1. Acute-appearing right hip fracture likely intertrochanteric in extension with remaining findings chronic in appearance. Dictated by: Dictated on workstation # [id number]
--- NOTE | 2019-11-13 14:54 | NUR ---
NOTIFIED CC EMS NOTIFIED OF TRANSFER BACK TO CT
--- NOTE | 2019-11-13 15:07 | NUR ---
REPORT CALLED TO [facility].
[2019-11-13 15:39] VITALS: BP 115/64
== END 2019-11-13 15:39 ==
LOC: EDUNIT# 14:16 → ER 14:17
DX: S72.001A Fracture of unspecified part of neck of right femur, initial encounter for closed fracture (principal); I10 Essential (primary) hypertension; G20 Parkinson's disease; F41.9 Anxiety disorder, unspecified; F32.9 Major depressive disorder, single episode, unspecified; K21.9 Gastro-esophageal reflux disease without esophagitis; F02.80 Dementia in other diseases classified elsewhere, unspecified severity, without behavioral disturbance, psychotic disturbance, mood disturbance, and anxiety; Z87.440 Personal history of urinary (tract) infections; Z88.6 Allergy status to analgesic agent; W19.XXXA Unspecified fall, initial encounter